=== PATIENT | male | born 1960 | race Caucasian/White ===

== ENCOUNTER 2020-06-08 13:47 | Outpatient (REF) | payer OTHER, SELFPAY ==
--- NOTE | 2020-06-08 13:57 | XR_ITS ---
EXAMINATION: RIGHT WRIST X-RAY CLINICAL INFORMATION: Pain COMPARISON: None TECHNIQUE: 4 views of the right wrist FINDINGS: Bone alignment is normal. No fracture or dislocation is seen. There is mild arthritis at the first SKILLED NURSING joint with small osteophytes. Joint spaces are otherwise normal. Soft tissues are normal. IMPRESSION: Mild arthritis at the first SKILLED NURSING joint.
== END 2020-06-08 13:48 | disposition home or self-care (01) ==
LOC: HO.XRAY 13:47
PROVIDERS: PCP Internal Medicine Medical Oncology; Visit Provider Internal Medicine Medical Oncology
DX: M25.531 Pain in right wrist (principal)
CPT/HCPCS: 73110

== ENCOUNTER 2020-08-16 11:08 | Outpatient (REF) | payer OTHER, SELFPAY ==
[2020-08-16 13:56] LABS: MANUAL DIFF FLAG NO
[2020-08-16 14:02] LABS: Basophils Absolute Auto 0.1 X10*3/uL (0.0-0.2); Basophils Percent Auto 0.8 % (0-2); Eosinophils Absolute Auto 0.2 X10*3/uL (0.0-0.4); Eosinophils Percent Auto 2.7 % (0-4); Hemoglobin 15.6 g/dl (14.0-18.0); Imm Gran Abs Auto 0.01 X10*3/uL (0.00-0.03); Imm Gran Pct Auto 0.2 % (0.0-0.4); Lymphocytes Absolute Auto 1.9 X10*3/uL (1.2-4.9); Lymphocytes Percent Auto 32.3 % (20-40); Mean Corpuscular HGB Conc 31.8 g/dl (31.0-36.0); Mean Corpuscular Hemoglobin 28.8 pg (27.0-33.0); Mean Corpuscular Volume 90.4 fL (80-98); Mean Platelet Volume 9.1 fL (9.4-12.4); Monocytes Absolute Auto 0.4 X10*3/uL (0.1-1.2); Monocytes Percent Auto 6.7 % (2-11); Neutrophils Absolute Auto 3.4 X10*3/uL (2.0-8.3); Neutrophils Percent Auto 57.3 % (45-73); Platelet Count 297 X10*3/uL (160-400); Red Blood Count 5.42 X10*6/uL (4.60-5.80); Red Cell Distribution Width 12.9 % (11.0-16.0)
[2020-08-16 14:42] LABS: Alanine Aminotransferase 22 U/L (0-40); Albumin Level 4.6 g/dL (3.5-5.0); Alkaline Phosphatase 71 U/L (39-117); Anion Gap 14 (12-20); Aspartate Amino Transferase 19 U/L (5-37); Bilirubin Total 0.5 mg/dL (0.0-1.0); Blood Urea Nitrogen 14 mg/dL (9-16); Calcium 8.8 mg/dL (8.4-10.2); Carbon Dioxide 25 mmol/L (22-29); Chloride 106 mmol/L (96-108); Cholesterol 162 mg/dL; Estimated Glomerular Filt Rate > 60; Glucose Fasting 93 mg/dL (60-99); HDL Cholesterol 45 mg/dL; LDL Cholesterol Calculated 88 mg/dl; Potassium 4.5 mmol/l (3.3-5.1); Sodium 140 mmol/L (135-145); Total Protein 7.1 g/dL (6.5-8.0); Triglycerides 146 mg/dL
== END 2020-08-16 11:09 | disposition home or self-care (01) ==
LOC: HO.HMGCLDS 11:08
PROVIDERS: PCP Internal Medicine Medical Oncology; Visit Provider Internal Medicine Medical Oncology
DX: E78.2 Mixed hyperlipidemia (principal); E66.9 Obesity, unspecified
CPT/HCPCS: 36415; 80053; 80061; 85025

== ENCOUNTER → 2020-11-03 10:43 | Outpatient (BNVA) | payer OTHER, SELFPAY | PROVIDERS: PCP Internal Medicine Medical Oncology; Visit Provider Urology ==

== ENCOUNTER 2021-01-20 08:52 | Outpatient (REF) | payer OTHER, SELFPAY ==
[2021-01-20 11:45] LABS: MANUAL DIFF FLAG NO
[2021-01-20 12:10] LABS: Basophils Absolute Auto 0.1 X10*3/uL (0.0-0.2); Basophils Percent Auto 1.2 % (0-2); Eosinophils Absolute Auto 0.2 X10*3/uL (0.0-0.4); Eosinophils Percent Auto 4.2 % (0-4); Hematocrit 42.7 % (42-52); Imm Gran Abs Auto 0.01 X10*3/uL (0.00-0.03); Imm Gran Pct Auto 0.2 % (0.0-0.4); Lymphocytes Absolute Auto 1.7 X10*3/uL (1.2-4.9); Lymphocytes Percent Auto 29.6 % (20-40); Mean Corpuscular HGB Conc 32.8 g/dl (31.0-36.0); Mean Corpuscular Hemoglobin 29.2 pg (27.0-33.0); Mean Platelet Volume 9.1 fL (9.4-12.4); Monocytes Absolute Auto 0.4 X10*3/uL (0.1-1.2); Monocytes Percent Auto 6.3 % (2-11); Neutrophils Absolute Auto 3.3 X10*3/uL (2.0-8.3); Neutrophils Percent Auto 58.5 % (45-73); Platelet Count 358 X10*3/uL (160-400); Red Cell Distribution Width 12.7 % (11.0-16.0); White Blood Count 5.7 X10*3/uL (4.8-10.8)
[2021-01-20 12:37] LABS: Prostate Specific Antigen 0.48 ng/mL (<0.05-4.0); Vitamin D 25-OH Total 32.1 ng/mL (>30)
[2021-01-20 12:44] LABS: Alanine Aminotransferase 23 U/L (0-40); Albumin Level 4.3 g/dL (3.5-5.0); Alkaline Phosphatase 77 U/L (39-117); Anion Gap 14 (12-20); Aspartate Amino Transferase 19 U/L (5-37); Bilirubin Total 0.4 mg/dL (0.0-1.0); Blood Urea Nitrogen 14 mg/dL (9-16); Calcium 9.1 mg/dL (8.4-10.2); Carbon Dioxide 24 mmol/L (22-29); Chloride 108 mmol/L (96-108); Cholesterol 142 mg/dL; Estimated Glomerular Filt Rate > 60; Glucose Fasting 110 mg/dL (60-99); HDL Cholesterol 41 mg/dL; LDL Cholesterol Calculated 80 mg/dl; Potassium 5.1 mmol/L (3.3-5.1); Sodium 141 mmol/L (135-145); Total Protein 6.8 g/dL (6.5-8.0); Triglycerides 106 mg/dL
== END 2021-01-20 08:53 | disposition home or self-care (01) ==
LOC: HO.HMGCLDS 08:52
PROVIDERS: PCP Internal Medicine Medical Oncology; Visit Provider Internal Medicine Medical Oncology
DX: Z12.5 Encounter for screening for malignant neoplasm of prostate (principal); E78.2 Mixed hyperlipidemia; E66.9 Obesity, unspecified; N40.1 Benign prostatic hyperplasia with lower urinary tract symptoms
CPT/HCPCS: 36415; 80053; 80061; 82306; 84153; 85025

== ENCOUNTER 2021-04-18 09:28 | Outpatient (REF) | payer MEDICAID, SELFPAY ==
[2021-04-18 11:05] LABS: MANUAL DIFF FLAG NO
[2021-04-18 11:15] LABS: Basophils Absolute Auto 0.1 X10*3/uL (0.0-0.2); Basophils Percent Auto 1.1 % (0-2); Eosinophils Absolute Auto 0.2 X10*3/uL (0.0-0.4); Eosinophils Percent Auto 2.3 % (0-4); Hematocrit 45.2 % (42-52); Hemoglobin 15.1 g/dl (14.0-18.0); Imm Gran Abs Auto 0.02 X10*3/uL (0.00-0.03); Imm Gran Pct Auto 0.3 % (0.0-0.4); Lymphocytes Absolute Auto 1.9 X10*3/uL (1.2-4.9); Mean Corpuscular HGB Conc 33.4 g/dl (31.0-36.0); Mean Corpuscular Hemoglobin 29.2 pg (27.0-33.0); Mean Corpuscular Volume 87.3 fL (80-98); Mean Platelet Volume 8.8 fL (9.4-12.4); Monocytes Absolute Auto 0.5 X10*3/uL (0.1-1.2); Monocytes Percent Auto 7.5 % (2-11); Neutrophils Absolute Auto 3.8 X10*3/uL (2.0-8.3); Neutrophils Percent Auto 59.8 % (45-73); Platelet Count 305 X10*3/uL (160-400); Red Blood Count 5.18 X10*6/uL (4.60-5.80); Red Cell Distribution Width 13.2 % (11.0-16.0); White Blood Count 6.4 X10*3/uL (4.8-10.8)
[2021-04-18 11:39] LABS: Alanine Aminotransferase 26 U/L (0-40); Albumin Level 4.6 g/dL (3.5-5.0); Alkaline Phosphatase 71 U/L (39-117); Anion Gap 15 (12-20); Aspartate Amino Transferase 22 U/L (5-37); Bilirubin Total 0.6 mg/dL (0.0-1.0); Blood Urea Nitrogen 16 mg/dL (9-16); Calcium 9.4 mg/dL (8.4-10.2); Carbon Dioxide 23 mmol/L (22-29); Chloride 105 mmol/L (96-108); Estimated Glomerular Filt Rate > 60; Glucose Random 102 mg/dL (60-115); Potassium 4.7 mmol/L (3.3-5.1); Sodium 138 mmol/L (135-145); Total Protein 7.1 g/dL (6.5-8.0)
[2021-04-18 11:58] LABS: Erythrocyte Sedimentation Rate 3 MM/HR (0-15)
== END 2021-04-18 09:29 | disposition home or self-care (01) ==
LOC: HO.HMGCLDS 09:28
PROVIDERS: PCP Internal Medicine Medical Oncology; Visit Provider Internal Medicine Medical Oncology
DX: C76.0 Malignant neoplasm of head, face and neck (principal); R59.0 Localized enlarged lymph nodes
CPT/HCPCS: 36415; 80053; 85025; 85652

== ENCOUNTER 2021-04-21 09:21 | Outpatient (REF) | payer MEDICAID, SELFPAY ==
--- NOTE | ~2021-04-21 | CT_ITS ---
EXAMINATION: CT HEAD WITH IV CONTRAST CT NECK WITH IV CONTRAST INDICATION: Head and neck cancer with enlarged lymph nodes. COMPARISON: None available. TECHNIQUE: Multidetector CT acquisitions of the head was obtained without IV contrast. This CT examination was performed using dose optimization techniques as appropriate, variously including the following: *Automated exposure control *Adjustment of mA and/or kV according to patient size (this includes techniques or standardized protocols for targeted exams where dose is matched to indication/reason for exam; i.e. extremities or head) *Use of iterative reconstruction technique FINDINGS: HEAD CT: There is no pathologic enhancement intracranially. There is no intracranial hemorrhage, hydrocephalus, extra-axial surface collection, midline shift, or other herniation pattern. Ryder to white matter differentiation is diffusely maintained without evidence of an evolved acute territorial infarct. The basilar cisterns are preserved. No significant soft tissue abnormality. No acute osseous abnormality. The paranasal sinuses and the mastoid air cells are well aerated. NECK CT: There is an enlarged left level 1B lymph node located directly anterior to the left submandibular gland measuring up to 2.3 cm in size. A metastatic lymph node is not excluded. The superficial mucosal spaces are very limitedly assessed secondary to significant dental streak artifact despite angled series. Given the above lymph node, a PET/CT would be helpful in excluding any superficial mucosal lesion that may be obscured on this exam. There is lobulated soft tissue within the vallecula bilaterally that can be correlated with direct visual inspection. Asymmetric vascularity superficial and within the left masseter muscle. A rpmu-lx-[id number] MRA and gadolinium infusion MRA of the neck inclusive of this area would be helpful in excluding an underlying high flow vascular malformation. The thyroid gland, the submandibular glands, and the right parotid gland are unremarkable. There is fatty replacement of the left parotid gland. There is centrilobular emphysema within the imaged lungs. Upper mediastinum demonstrates small lymph nodes that is otherwise unremarkable. No suspicious intraosseous lesions. Multilevel cervical spondylosis. CT/CT head/brain w con IMPRESSION: - There is an enlarged left level 1B lymph node located directly anterior to the left submandibular gland measuring up to 2.3 cm in size. A metastatic lymph node is not excluded. The superficial mucosal spaces are very limitedly assessed secondary to significant dental streak artifact despite angled series. Given the above lymph node, a PET/CT would be helpful in excluding any superficial mucosal lesion that may be obscured on this exam. - Asymmetric vascularity superficial and within the left masseter muscle. A nhro-ps-flrwhz MRA and gadolinium infusion MRA of the neck inclusive of this area would be helpful in excluding an underlying high flow vascular malformation. - There is lobulated soft tissue within the vallecula bilaterally that can be correlated with direct visual inspection. - There is fatty replacement of the left parotid gland. - No acute intracranial findings. No enhancing lesions intracranially.
--- NOTE | ~2021-04-21 | CT_ITS ---
EXAMINATION: CT HEAD WITH IV CONTRAST CT NECK WITH IV CONTRAST INDICATION: Head and neck cancer with enlarged lymph nodes. COMPARISON: None available. TECHNIQUE: Multidetector CT acquisitions of the head was obtained without IV contrast. This CT examination was performed using dose optimization techniques as appropriate, variously including the following: *Automated exposure control *Adjustment of mA and/or kV according to patient size (this includes techniques or standardized protocols for targeted exams where dose is matched to indication/reason for exam; i.e. extremities or head) *Use of iterative reconstruction technique FINDINGS: HEAD CT: There is no pathologic enhancement intracranially. There is no intracranial hemorrhage, hydrocephalus, extra-axial surface collection, midline shift, or other herniation pattern. Ryder to white matter differentiation is diffusely maintained without evidence of an evolved acute territorial infarct. The basilar cisterns are preserved. No significant soft tissue abnormality. No acute osseous abnormality. The paranasal sinuses and the mastoid air cells are well aerated. NECK CT: There is an enlarged left level 1B lymph node located directly anterior to the left submandibular gland measuring up to 2.3 cm in size. A metastatic lymph node is not excluded. The superficial mucosal spaces are very limitedly assessed secondary to significant dental streak artifact despite angled series. Given the above lymph node, a PET/CT would be helpful in excluding any superficial mucosal lesion that may be obscured on this exam. There is lobulated soft tissue within the vallecula bilaterally that can be correlated with direct visual inspection. Asymmetric vascularity superficial and within the left masseter muscle. A xuzw-ck-qakdxs MRA and gadolinium infusion MRA of the neck inclusive of this area would be helpful in excluding an underlying high flow vascular malformation. The thyroid gland, the submandibular glands, and the right parotid gland are unremarkable. There is fatty replacement of the left parotid gland. There is centrilobular emphysema within the imaged lungs. Upper mediastinum demonstrates small lymph nodes that is otherwise unremarkable. No suspicious intraosseous lesions. Multilevel cervical spondylosis. CT/CT soft tissue neck w con IMPRESSION: - There is an enlarged left level 1B lymph node located directly anterior to the left submandibular gland measuring up to 2.3 cm in size. A metastatic lymph node is not excluded. The superficial mucosal spaces are very limitedly assessed secondary to significant dental streak artifact despite angled series. Given the above lymph node, a PET/CT would be helpful in excluding any superficial mucosal lesion that may be obscured on this exam. - Asymmetric vascularity superficial and within the left masseter muscle. A nzoe-mf-rpocdg MRA and gadolinium infusion MRA of the neck inclusive of this area would be helpful in excluding an underlying high flow vascular malformation. - There is lobulated soft tissue within the vallecula bilaterally that can be correlated with direct visual inspection. - There is fatty replacement of the left parotid gland. - No acute intracranial findings. No enhancing lesions intracranially.
[2021-04-21] MEDS: iohexoL 350 MG/ML 100 ML INFUS..BTL 60 ML IV (10:31)
== END 2021-04-21 09:22 | disposition home or self-care (01) ==
LOC: HO.CT 09:21
PROVIDERS: PCP Internal Medicine Medical Oncology; Visit Provider Internal Medicine Medical Oncology
DX: C76.0 Malignant neoplasm of head, face and neck (principal); R59.0 Localized enlarged lymph nodes
CPT/HCPCS: 70460; 70491; Q9967

== ENCOUNTER 2021-05-20 08:38 | Outpatient (REF) | payer MEDICAID, SELFPAY ==
--- NOTE | ~2021-05-20 | US_ITS ---
EXAMINATION: ULTRASOUND-GUIDED FINE-NEEDLE ASPIRATION CLINICAL INFORMATION: Enlarged left submandibular lymph node. History of head and neck cancer. COMPARISON: Previous CT of the neck 04/21/2021 TECHNIQUE: Procedure and risks and benefits including bleeding and infection were discussed with the patient and informed consent was obtained. The left submandibular region was prepped and draped in the usual sterile fashion. The skin and soft tissues were anesthetized with 1% lidocaine plain. Using ultrasound guidance and a 22-gauge needle, 3 separate fine-needle aspirates were performed. FINDINGS: There is an enlarged left submandibular lymph node that was targeted for fine-needle aspiration. This measures 2.2 x 1.7 x 2.2 cm in dimension. Demonstrates abnormal ultrasound morphology with slit-like hilum and diffuse cortical flow. US/US guided fine needle asp IMPRESSION: Ultrasound-guided fine-needle aspiration of left submandibular lymph node.
[2021-05-20] MEDS: Lidocaine HCl 1 % MPF 5 ML VIAL SUBCUT (10:08)
== END 2021-05-20 08:39 | disposition home or self-care (01) ==
LOC: HO.US 08:38
PROVIDERS: Radiology Diagnostic Radiology; Visit Provider Internal Medicine Medical Oncology
DX: C77.0 Secondary and unspecified malignant neoplasm of lymph nodes of head, face and neck (principal); C76.0 Malignant neoplasm of head, face and neck
CPT/HCPCS: 10005; 36415; 88172; 88173; 88184; 88185; 88300; 88305; 88341; 88342

== ENCOUNTER 2021-12-12 09:37 | Outpatient (REF) | payer MEDICAID, SELFPAY ==
[2021-12-12 11:38] LABS: MANUAL DIFF FLAG NO
[2021-12-12 12:06] LABS: Basophils Absolute Auto 0.1 X10*3/uL (0.0-0.2); Eosinophils Absolute Auto 0.1 X10*3/uL (0.0-0.4); Eosinophils Percent Auto 1.6 % (0-4); Hematocrit 44.1 % (42.0-52.0); Hemoglobin 14.2 g/dl (14.0-18.0); Imm Gran Abs Auto 0.02 X10*3/uL (0.00-0.03); Imm Gran Pct Auto 0.3 % (0.0-0.4); Lymphocytes Absolute Auto 0.5 X10*3/uL (1.2-4.9); Lymphocytes Percent Auto 7.4 % (20-40); Mean Corpuscular HGB Conc 32.2 g/dl (31.0-36.0); Mean Corpuscular Hemoglobin 29.2 pg (27.0-33.0); Mean Corpuscular Volume 90.7 fL (80.0-98.0); Monocytes Absolute Auto 0.4 X10*3/uL (0.1-1.2); Neutrophils Absolute Auto 5.8 x10*3/uL (2.0-8.3); Neutrophils Percent Auto 83.7 % (45-73); Platelet Count 315 X10*3/uL (160-400); Red Blood Count 4.86 X10*6/uL (4.60-5.80); Red Cell Distribution Width 14.7 % (11.0-16.0); White Blood Count 6.9 X10*3/uL (4.8-10.8)
[2021-12-12 12:32] LABS: Alanine Aminotransferase 16 U/L (0-40); Albumin Level 4.3 g/dL (3.5-5.0); Alkaline Phosphatase 70 U/L (39-117); Anion Gap 12 (12-20); Aspartate Amino Transferase 18 U/L (5-37); Blood Urea Nitrogen 9 mg/dL (9-16); Calcium 9.2 mg/dL (8.4-10.2); Carbon Dioxide 24 mmol/L (22-29); Chloride 106 mmol/L (96-108); Cholesterol 166 mg/dL; Estimated Glomerular Filt Rate > 60; Glucose Fasting 121 mg/dL (60-99); HDL Cholesterol 45 mg/dL; LDL Cholesterol Calculated 100 mg/dl; Potassium 4.8 mmol/L (3.3-5.1); Sodium 137 mmol/L (135-145); Total Protein 6.8 g/dL (6.5-8.0); Triglycerides 106 mg/dL
[2021-12-12 12:33] LABS: Prostate Specific Antigen 0.27 ng/mL (<0.05-4.0)
== END 2021-12-12 09:38 | disposition home or self-care (01) ==
LOC: HO.HMGCLDS 09:37
PROVIDERS: Visit Provider Internal Medicine Medical Oncology
DX: Z00.00 Encounter for general adult medical examination without abnormal findings (principal); Z12.5 Encounter for screening for malignant neoplasm of prostate; E66.9 Obesity, unspecified; E78.2 Mixed hyperlipidemia; N40.1 Benign prostatic hyperplasia with lower urinary tract symptoms
CPT/HCPCS: 36415; 80053; 80061; 84153; 85025

== ENCOUNTER 2022-01-31 09:17 | Outpatient (REF) | payer MEDICAID, SELFPAY ==
[2022-01-31 11:45] LABS: MANUAL DIFF FLAG NO
[2022-01-31 11:56] LABS: Basophils Percent Auto 0.9 % (0-2); Eosinophils Absolute Auto 0.1 X10*3/uL (0.0-0.4); Eosinophils Percent Auto 2.2 % (0-4); Hemoglobin 13.6 g/dl (14.0-18.0); Imm Gran Abs Auto 0.01 X10*3/uL (0.00-0.03); Imm Gran Pct Auto 0.2 % (0.0-0.4); Lymphocytes Absolute Auto 0.5 X10*3/uL (1.2-4.9); Lymphocytes Percent Auto 10.7 % (20-40); Mean Corpuscular HGB Conc 32.4 g/dl (31.0-36.0); Mean Corpuscular Hemoglobin 29.8 pg (27.0-33.0); Mean Corpuscular Volume 92.1 fL (80.0-98.0); Mean Platelet Volume 9.2 fL (9.4-12.4); Monocytes Absolute Auto 0.4 X10*3/uL (0.1-1.2); Monocytes Percent Auto 8.5 % (2-11); Neutrophils Absolute Auto 3.5 x10*3/uL (2.0-8.3); Neutrophils Percent Auto 77.5 % (45-73); Platelet Count 280 X10*3/uL (160-400); Red Blood Count 4.56 X10*6/uL (4.60-5.80); Red Cell Distribution Width 13.4 % (11.0-16.0); White Blood Count 4.5 X10*3/uL (4.8-10.8)
[2022-01-31 12:14] LABS: Alanine Aminotransferase 27 U/L (0-40); Alkaline Phosphatase 73 U/L (39-117); Anion Gap 10 (12-20); Aspartate Amino Transferase 26 U/L (5-37); Bilirubin Total 0.3 mg/dL (0.0-1.0); Blood Urea Nitrogen 15 mg/dL (9-16); Calcium 8.8 mg/dL (8.4-10.2); Carbon Dioxide 25 mmol/L (22-29); Chloride 108 mmol/L (96-108); Estimated Glomerular Filt Rate > 60; Glucose Fasting 107 mg/dL (60-99); Potassium 4.8 mmol/L (3.3-5.1); Sodium 138 mmol/L (135-145); Total Protein 6.3 g/dL (6.5-8.0)
== END 2022-01-31 09:18 | disposition home or self-care (01) ==
LOC: HO.HMGCLDS 09:17
PROVIDERS: Visit Provider Internal Medicine Medical Oncology
DX: C76.0 Malignant neoplasm of head, face and neck (principal); E66.9 Obesity, unspecified; E78.2 Mixed hyperlipidemia
CPT/HCPCS: 36415; 80053; 85025

== ENCOUNTER 2022-02-06 08:22 | Outpatient (REF) | payer MEDICAID, SELFPAY ==
--- NOTE | ~2022-02-06 | CT_ITS ---
EXAMINATION: CT SOFT TISSUE NECK WITH CONTRAST CLINICAL INFORMATION: History of malignant neoplasm of head/face/neck. Metastatic squamous cell carcinoma. COMPARISON: 04/21/2021 CT. TECHNIQUE: Following the intravenous administration of 60 mL of Omnipaque 350 intravenous contrast, helical imaging was performed in the axial plane with generation of coronal and sagittal reformatted images. This CT examination was performed using dose optimization techniques as appropriate, variously including the following: *Automated exposure control *Adjustment of mA and/or kV according to patient size (this includes techniques or standardized protocols for targeted exams where dose is matched to indication/reason for exam; i.e. extremities or head) *Use of iterative reconstruction technique DLP: 348 mGy-cm FINDINGS: Skull Base: The bony skull base and visualized calvarium are intact. Mastoids and middle ear cavities are unopacified. Nasal septal deviation to the right is noted with a small retention cyst and some mucosal thickening in the left maxillary sinus on current study. The visualized intracranial structures demonstrate no acute process within the limitations of the study. There is opacification of the visualized major dural venous sinuses and jugular bulbs. Suprahyoid Neck: The nasopharynx, retropharynx and parapharyngeal spaces appear symmetric and within normal limits. The right parotid gland is normal in morphology and enhances normally. The left parotid gland is absent. Correlate with surgical history. Masseter muscles appear symmetric and normal in attenuation with a normal appearance to the medial and lateral pterygoid muscles. Prominent vascularity is again noted along the lateral margin of the left masseter muscle, which raises the question of a possible arteriovenous malformation. There is streak and beam-hardening artifact related to metallic dentition in the oral cavity resulting in obscuration of portions of the oral tongue, lingual and buccal spaces and mandible. A subtle zone of hypodensity on the left side of the oral tongue is unchanged from the previous study and may be related to beam-hardening. Otherwise, no definite focal tongue lesion seen. The base of the tongue and floor of the mouth structures appear symmetric and intact. The right submandibular gland is normal in morphology and enhances normally. The left submandibular gland has been excised along with excision of a previously noted enlarged level 1B lymph node on the left at this level, now with streaky opacities and clips in this region with thickening of the platysma muscle. These findings are consistent with postoperative and posttreatment changes. Streaky changes in the subcutaneous fat on both sides of the neck with some thickening of the right platysma muscle also noted, likely posttreatment changes. No recurrent lymphadenopathy identified. Some lobulated soft tissue in the region of the vallecula asymmetric to the left appears similar to the previous study. Correlate with direct visualization. Prominent vascularity along the floor of the mouth on the left is noted on the current study which is nonspecific. A metallic clip is seen directly adjacent to this. Infrahyoid Neck: There is prevertebral soft tissue thickening with hypodensity in the retropharyngeal space. Uncertain whether this represents edema or fluid in the retropharynx extending from the level of the dens caudally down to the true vocal cords. Recommend clinical correlation and correlation with previous treatment port and/or PET/CT. True vocal cords and false cords are not ideally evaluated but no definite laryngeal lesion is seen. Thyroid gland appears normal. Atheromatous vascular calcification of the carotid bulbs is noted bilaterally similar to previous exam. No definite infrahyoid lymphadenopathy. Normal appearance to the tracheoesophageal grooves. Upper Chest: The visualized lung parenchyma demonstrates scattered emphysematous changes bilaterally similar to the previous exam. Mild fibrotic changes at the right lung apex are suspected. The visualized mediastinum demonstrates scattered multiple nonenlarged subcarinal, right hilar, precarinal, ductus region and right paratracheal lymph nodes similar to the previous exam. Skeletal: Lordotic reversal centered at C3-C4 with multilevel cervical DDD and spondylosis stable in appearance without focally aggressive osseous lesion. Other Comments: None CT/CT soft tissue neck w con IMPRESSION: 1. Postoperative and posttreatment changes on the left, as described above with no definite evidence for recurrent lymphadenopathy. Continue followup recommended at a clinically appropriate interval. 2. Mild hypodensity tracking along the retropharynx from the level of the dens down to the level of the true vocal cords of indeterminate etiology and clinical significance. This has developed since the previous exam. Uncertain whether these are posttreatment changes or infectious disease. Correlate with the previous treatment port and clinical exam. 3. Small air-filled external laryngocele noted on the left similar to previous exam with some lobulated soft tissue near the vallecula on the left similar to previous exam. Correlate with direct visualization. 4. Atheromatous calcifications of the carotid bulbs similar to previous exam. Prominent vascularity along the lateral margin of the masseter muscle and along the floor of the mouth on the left. This appears more prominent than the previous study. Cannot exclude an arteriovenous malformation. 5. Pulmonary findings as discussed above similar to the previous exam. The [facility] staff will call to confirm receipt of this report with acknowledgement of the findings and any recommendations.
[2022-02-06] MEDS: iohexoL 350 MG/ML 75 ML INFUS..BTL 60 ML IV (09:53)
== END 2022-02-06 08:23 | disposition home or self-care (01) ==
LOC: HO.CT 08:22
PROVIDERS: PCP Internal Medicine Medical Oncology; Visit Provider Internal Medicine Medical Oncology
DX: C76.0 Malignant neoplasm of head, face and neck (principal)
CPT/HCPCS: 70491; Q9967

== ENCOUNTER → 2022-04-14 08:24 | Outpatient (BNVA) | payer MEDICAID, SELFPAY | PROVIDERS: PCP Internal Medicine Medical Oncology; Visit Provider Urology | DX: N32.3 Diverticulum of bladder (principal); N32.0 Bladder-neck obstruction | CPT/HCPCS: 51798; 99212 ==

== ENCOUNTER 2022-06-26 06:48 | Day surgery (SDC) | payer OTHER, SELFPAY ==
[2022-06-20 11:42] VITALS: BMI 25.8
--- NOTE | 2022-06-23 09:26 | HO.ANESPROP2 ---
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 History of radiation therapy History of radiation therapy Incomplete emptying of bladder Salivary gland carcinoma Weak urinary stream Family History Family History Father Myocardial infarct Diabetes mellitus HTN (hypertension) Mother Asthma Acute Crohn's disease Arthritis Surgical History Surgical History H/O umbilical hernia repair History of appendectomy History of bowel resection History of hernia repair Hx of tonsillectomy Social History Social History Patient Tobacco Use Status: Former Tobacco user Tobacco use type: Cigarette Smoked in Last 30 Days: No Use of substances other than those prescribed or required for medical reasons: Yes Are you DNR?: No Advance Directives: No Advance Directives Information Provided: Yes Meds Allergies Allergy/AdvReac Type Severity Reaction Status Date / Time levofloxacin [Levaquin] Allergy Severe Itching Verified 06/26/22 07:00 bee sting Allergy Severe Swelling Uncoded 06/26/22 07:00 Ceftin Allergy Severe Itching Uncoded 06/26/22 07:00 Home Medications Medication Instructions Recorded Confirmed Last Taken Type simvastatin 20 mg tablet 20 mg PO BEDTIME 11/03/20 06/26/22 Unknown History paroxetine HCl 10 mg tablet 10 mg PO QAM 06/19/22 06/26/22 06/26/22 History terazosin 10 mg capsule 20 mg PO BEDTIME 06/26/22 06/26/22 Unknown History Exam Exam Date and Time: June 23, 2022 0926 Height,Weight and Vital Signs: Height 5 ft 8 in Weight 77.111 kg Pertinent Lab Results Pertinent Lab Results: Laboratory Tests 01/31/22 01/31/22 09:23 09:23 WBC 4.5 L Hgb 13.6 L Hct 42.0 Plt Count 280 Sodium 138 Potassium 4.8 Chloride 108 Carbon Dioxide 25 BUN 15 D Creatinine 0.89 Assessment and Plan Assessment Anesthesia Assessment: Chart Reviewed Documented by User: Yanni Salvador MD 06/26/22 08:21 [facility] Active Problems Active Problems: All Active Problems (Updated 11/03/20 @ 11:23 by Ady Patton MD) Bladder diverticulum (Acute) Bladder outlet obstruction (Acute) BPH (benign prostatic hyperplasia) (Acute) Anxiety/Depression Hyperlipidemia Past Medical History Medical History Basal cell carcinoma Bladder diverticulum Bladder outlet obstruction BPH (benign prostatic hyperplasia) Diverticulitis Dry mouth Emphysema of right lung 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 History of radiation therapy History of radiation therapy Incomplete emptying of bladder Salivary gland carcinoma Weak urinary stream Family History Family History Father Myocardial infarct Diabetes mellitus HTN (hypertension) Mother Asthma Acute Crohn's disease Arthritis Family history of problems with anesthesia: No Surgical History Surgical History H/O umbilical hernia repair History of appendectomy History of bowel resection History of hernia repair Hx of tonsillectomy History of Problems with Anesthesia: No Social History Social History Patient Tobacco Use Status: Former Tobacco user Tobacco use type: Cigarette Smoked in Last 30 Days: No Use of substances other than those prescribed or required for medical reasons: Yes Are you DNR?: No Advance Directives: No Advance Directives Information Provided: Yes Meds Allergies Allergy/AdvReac Type Severity Reaction Status Date / Time levofloxacin [Levaquin] Allergy Severe Itching Verified 06/26/22 07:00 bee sting Allergy Severe Swelling Uncoded 06/26/22 07:00 Ceftin Allergy Severe Itching Uncoded 06/26/22 07:00 Home Medications Medication Instructions Recorded Confirmed Last Taken Type simvastatin 20 mg tablet 20 mg PO BEDTIME 11/03/20 06/26/22 Unknown History paroxetine HCl 10 mg tablet 10 mg PO QAM 06/19/22 06/26/22 06/26/22 History terazosin 10 mg capsule 20 mg PO BEDTIME 06/26/22 06/26/22 Unknown History Exam Height,Weight and Vital Signs: Height 5 ft 8 in Weight 77.111 kg Vital Signs Temp Pulse Resp BP Pulse Ox O2 Del Method 06/26/22 07:29 97.2 F 69 16 133/73 98 Room Air Airway Mallampati Class: IV TM Dist: >3cm Neck ROM: Limited (S/p head and neck radiation) Heart: RRR Lungs: CTAB Assessment and Plan Assessment Anesthesia Assessment: Anesthesia Plan Discussed Final Anesthetic Review Family History of Problems with Anesthesia: No History of Problems with Anesthesia: No NPO: Yes ASA Class: III Final Preanesthetic Review: No Changes in Pt Med Stat, Meds/Allgs Chart Reviewed, Consent Obtained/Reviewed and Anes Risks/Benef Reviewed Patient Risk: Intermediate Procedure Risk: Low Assessment/Block/Sedation in SS: Assess/Block/Sedation-SS Anesthetic Plan Anesthetic Plan: GA Disposition: Standard PACU
[2022-06-26] VITALS (7 sets, daily range): BP systolic 112–140; BP diastolic 73–85; PULSE 69–92; RESP 16–20; TEMP 36.2–36.6; O2SAT 97–99; BMI 27.5
[2022-06-26] MEDS: Lactated Ringers 1,000 ML 100 ML IVCONT (07:48)
--- NOTE | 2022-06-26 08:17 | PC.NURSE ---
patient stated he hit his neck with a part of a log about two weeks ago. c/o left neck pain. no loc or denies falling off a ladder. didnt hit head. wasnt seen by . anesthesia aware .
--- NOTE | 2022-06-26 08:38 | MHC.SHP ---
Pre-Procedural Eval Section A Date of Service: 06/26/22 The patient is an INPATIENT: No Changes since office visit: No Cold of Flu in the past 2 weeks, No New Medical Problems, No Changes in Medication and No Patient answered all questions The History & Physical has been completed within 30 days and I have reviewed it.: Yes Section B Chief Complaint: Benign prostatic hyperplasia without lower urinary Details of Present Illness: Laser prostatectomy with laser ablation of diverticulum Relevant Family History (Specify if Yes): No Relevant Social History: None Present Medications: see Short Stay Collaborative assessment Medical History: No relevant PMH History of Previous Operations: No relevant previous surgery Allergies: Allergies Allergy/AdvReac Type Severity Reaction Status Date / Time levofloxacin [Levaquin] Allergy Severe Itching Verified 06/26/22 07:00 bee sting Allergy Severe Swelling Uncoded 06/26/22 07:00 Ceftin Allergy Severe Itching Uncoded 06/26/22 07:00 Review of Systems Sugical H&P ROS: Negative: Constitution, Cardiovascular, Respiratory, Neurological, Psychiatric, Hem-Onc, Allergic/Immunologic, Gastrointestinal, Genitourinary, Musculoskeletal, Integumentary, Endocrine and Eyes/Ears/Nose/Throat Exam Surgical H&P Exam: Normal: HEENT, Normal: Heart, Normal: Lungs, Normal: Extremities, Normal: Abdomen, Normal: Skin and Normal: Neurological Plan Diagnosis/Plan: Unchanged (BPH with bladder diverticulum) I have reviewed the history and physical and performed a pertinent physical examination on my patient. No changes have occurred unless specified.
--- NOTE | 2022-06-26 08:50 | MHC.SHP ---
Pre-Procedural Eval Section A Date of Service: 06/26/22 The patient is an INPATIENT: No Changes since office visit: No Cold of Flu in the past 2 weeks, No New Medical Problems, No Changes in Medication and No Patient answered all questions The History & Physical has been completed within 30 days and I have reviewed it.: Yes Section B Chief Complaint: Benign prostatic hyperplasia without lower urinary Allergies: Allergies Allergy/AdvReac Type Severity Reaction Status Date / Time levofloxacin [Levaquin] Allergy Severe Itching Verified 06/26/22 07:00 bee sting Allergy Severe Swelling Uncoded 06/26/22 07:00 Ceftin Allergy Severe Itching Uncoded 06/26/22 07:00 Plan I have reviewed the history and physical and performed a pertinent physical examination on my patient. No changes have occurred unless specified.
--- NOTE | 2022-06-26 09:57 | W.PM.OPN ---
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 Treated with alpha-nathalie and other medications. Still with symptoms. On cystoscopy in office has tight bladder neck - with right posterior wall bladder diverticulum and tight neck. Recommendation for prostate procedure with laser enucleation of prostate. It has been discussed. Focus was placed on development of retrograde examination which is a normal part of this procedure. Procedure: After informed consent was verified the patient was brought to the operating room and placed in a supine position. Anesthesia was administered per protocol. Patient was placed in modified dorsal lithotomy position and prepped and draped in a sterile fashion. Safety pause time-out was confirmed. Antibiotics have been given. Twenty-four Vincentian laser cystoscope was inserted per urethra. No abnormalities found the anterior posterior urethra. The bladder was filled on both ureteric orifices were seen in normal position away from our area of interest. The bladder diverticulum was seen in the right posterior wall with a tight bladder neck. Using the GreenLight laser with settings of 60 w incisions were made at the 03:00 o'clock and 09:00 o'clock and 12:00 o'clock positions. These were taken deep enough that bladder fat was noted. After the 3 incisions had been made the diverticulum itself was fulgurated using the coagulation settings of the GreenLight laser. This is done in order to promote scarring and retraction of the diverticulum. Using a GreenLight laser settings of 80 w incisions were made at the 5 and 7 o'clock position. They were taken down and then laterally on each side. They were brought from the bladder neck down to the level of the veru. These defined the lateral aspects of the median lobe area. The median lobe was ablated and enucleated tissue removed. Once the median lobe area had been cleaned attention was directed to the lateral lobes. We started with the patient's left lateral lobe. Firstly the 05:00 o'clock groove was further developed. This was moved in the lateral position to undermine the tissue on the lateral side. Focus was then placed on the laser at the 1 o'clock position in developing a secondary groove down to the level of bladder fibers. The intervening tissue between these 2 grooves was removed with a combination of enucleation ablation working from the apex toward the bladder neck. A similar procedure was repeated on the patient's right-hand side. When this was completed debris and pieces of prostate removed from the bladder. Both ureteric orifices were reviewed again in shown to be patent in away from any areas of energy damage. The apical area was reviewed in any stray ooze was controlled. A 22 Vincentian 30 cc balloon Abraham catheter was placed over stylet into the bladder. Clear efflux was obtained. 30 cc was placed in the balloon and gentle traction was placed. A snap was used to hold tension once the patient will be moved and transported. Once transportation its finish this novel be removed. A belladonna and opiate suppository was placed for postprocedure pain management. He tolerated procedure well was extubated in the operating and transferred in a stable condition to the recovery area. Total Power 108 kW 20:30 sec Pathology: Prostate tissue Drains: Abraham catheter
[2022-06-26] MEDS: oxyCODONE HCl Immed Release 5 MG TABLET PO (10:12)
[2022-06-26] MEDS: Acetaminophen 325 MG TABLET 650 MG PO (10:12)
== END 2022-06-26 11:12 | disposition home or self-care (01) ==
PROVIDERS: PCP Internal Medicine Medical Oncology; Visit Provider Urology
PROC: (CPT 52648; principal; 2022-06-26 09:10)
DX: N40.1 Benign prostatic hyperplasia with lower urinary tract symptoms (principal); N32.0 Bladder-neck obstruction; N32.3 Diverticulum of bladder
CPT/HCPCS: 52649; 52305; 88305; J0690; J1100; J2250; J2405; J3010

== ENCOUNTER → 2022-06-29 09:22 | Outpatient (BNVA) | payer OTHER, SELFPAY | PROVIDERS: PCP Internal Medicine Medical Oncology; Visit Provider Urology | DX: N40.0 Benign prostatic hyperplasia without lower urinary tract symptoms (principal) | CPT/HCPCS: 51700; 51798 ==

== ENCOUNTER 2022-07-31 10:52 | Outpatient (REF) | payer OTHER, SELFPAY ==
[2022-07-31 14:28] LABS: Appearance Urine Clear; Color Urine Yellow; Glucose Urine UA Negative (Negative); Leukocyte Esterase Urine Moderate (2+) (Negative); Nitrite Urine Negative (Negative); PH 6.5 (5.0-9.0); UMIC TRIGGER UA YES; Urine Blood Negative (Negative); Urine Ketones Negative (Negative); Urine Protein Negative (Neg-Trace)
[2022-07-31 14:31] LABS: Bacteria Urine None Seen (None Seen); Hyaline Casts Urine 0-2 /LPF (0-2); Squamous Epithelial Cell Urine 0-2 /HPF (0-2); WBC Urine >50 /HPF (0-5)
== END 2022-07-31 10:53 | disposition home or self-care (01) ==
LOC: HO.HMGCLDS 10:52
PROVIDERS: PCP Internal Medicine Medical Oncology; Visit Provider Urology
DX: N32.0 Bladder-neck obstruction (principal); N40.0 Benign prostatic hyperplasia without lower urinary tract symptoms
CPT/HCPCS: 81001; 87086

== ENCOUNTER → 2022-08-11 10:30 | Outpatient (BNVA) | payer OTHER, SELFPAY | PROVIDERS: PCP Internal Medicine Medical Oncology; Visit Provider Urology | DX: N32.3 Diverticulum of bladder (principal); N32.0 Bladder-neck obstruction; N40.0 Benign prostatic hyperplasia without lower urinary tract symptoms | CPT/HCPCS: 51798; 99212 ==

== ENCOUNTER 2022-11-02 08:27 | Outpatient (REF) | payer MEDICAID, SELFPAY ==
[2022-11-02 11:06] LABS: MANUAL DIFF FLAG NO
[2022-11-02 11:21] LABS: Basophils Absolute Auto 0.1 X10*3/uL (0.0-0.2); Eosinophils Absolute Auto 0.1 X10*3/uL (0.0-0.4); Eosinophils Percent Auto 2.4 % (0-4); Hematocrit 44.7 % (42.0-52.0); Hemoglobin 14.6 g/dl (14.0-18.0); Imm Gran Abs Auto 0.02 X10*3/uL (0.00-0.03); Imm Gran Pct Auto 0.3 % (0.0-0.4); Lymphocytes Absolute Auto 0.7 X10*3/uL (1.2-4.9); Lymphocytes Percent Auto 12.2 % (20-40); Mean Corpuscular HGB Conc 32.7 g/dl (31.0-36.0); Mean Corpuscular Hemoglobin 29.5 pg (27.0-33.0); Mean Corpuscular Volume 90.3 fL (80.0-98.0); Mean Platelet Volume 8.9 fL (9.4-12.4); Monocytes Absolute Auto 0.4 X10*3/uL (0.1-1.2); Monocytes Percent Auto 6.7 % (2-11); Neutrophils Absolute Auto 4.5 x10*3/uL (2.0-8.3); Neutrophils Percent Auto 77.4 % (45-73); Platelet Count 308 X10*3/uL (160-400); Red Blood Count 4.95 X10*6/uL (4.60-5.80); Red Cell Distribution Width 13.6 % (11.0-16.0); White Blood Count 5.8 X10*3/uL (4.8-10.8)
[2022-11-02 11:52] LABS: Alanine Aminotransferase 30 U/L (0-40); Albumin Level 4.2 g/dL (3.5-5.0); Alkaline Phosphatase 75 U/L (39-117); Anion Gap 11 (12-20); Aspartate Amino Transferase 25 U/L (5-37); Bilirubin Total 0.6 mg/dL (0.0-1.0); Blood Urea Nitrogen 11 mg/dL (9-16); Calcium 9.2 mg/dL (8.4-10.2); Carbon Dioxide 27 mmol/L (22-29); Chloride 107 mmol/L (96-108); Cholesterol 169 mg/dL; Estimated Glomerular Filt Rate > 60; Glucose Fasting 110 mg/dL (60-99); HDL Cholesterol 43 mg/dL; LDL Cholesterol Calculated 94 mg/dl; Potassium 4.9 mmol/L (3.3-5.1); Sodium 140 mmol/L (135-145); Total Protein 6.5 g/dL (6.5-8.0); Triglycerides 163 mg/dL
[2022-11-02 12:37] LABS: Prostate Specific Antigen 0.32 ng/mL (<0.05-4.0); Vitamin D 25-OH Total 29.5 ng/mL (>30)
== END 2022-11-02 08:28 | disposition home or self-care (01) ==
LOC: HO.HMGCLDS 08:27
PROVIDERS: PCP Internal Medicine Medical Oncology; Visit Provider Internal Medicine Medical Oncology
DX: C76.0 Malignant neoplasm of head, face and neck (principal); E78.2 Mixed hyperlipidemia; Z12.5 Encounter for screening for malignant neoplasm of prostate
CPT/HCPCS: 36415; 80053; 80061; 82306; 84153; 85025

== ENCOUNTER 2023-01-18 08:19 | Outpatient (REF) | payer MEDICAID, SELFPAY ==
[2023-01-18 11:04] LABS: MANUAL DIFF FLAG NO
[2023-01-18 11:25] LABS: Basophils Absolute Auto 0.1 X10*3/uL (0.0-0.2); Basophils Percent Auto 1.3 % (0-2); Eosinophils Absolute Auto 0.2 X10*3/uL (0.0-0.4); Eosinophils Percent Auto 2.5 % (0-4); Hematocrit 46.4 % (42.0-52.0); Hemoglobin 15.5 g/dl (14.0-18.0); Imm Gran Abs Auto 0.02 X10*3/uL (0.00-0.03); Imm Gran Pct Auto 0.3 % (0.0-0.4); Lymphocytes Absolute Auto 0.9 X10*3/uL (1.2-4.9); Lymphocytes Percent Auto 15.7 % (20-40); Mean Corpuscular HGB Conc 33.4 g/dl (31.0-36.0); Mean Corpuscular Hemoglobin 30.5 pg (27.0-33.0); Mean Corpuscular Volume 91.2 fL (80.0-98.0); Mean Platelet Volume 9.1 fL (9.4-12.4); Monocytes Absolute Auto 0.6 X10*3/uL (0.1-1.2); Monocytes Percent Auto 9.4 % (2-11); Neutrophils Absolute Auto 4.2 x10*3/uL (2.0-8.3); Neutrophils Percent Auto 70.8 % (45-73); Platelet Count 319 X10*3/uL (160-400); Red Blood Count 5.09 X10*6/uL (4.60-5.80); Red Cell Distribution Width 13.4 % (11.0-16.0)
[2023-01-18 11:41] LABS: Alanine Aminotransferase 28 U/L (0-40); Albumin Level 4.3 g/dL (3.5-5.0); Alkaline Phosphatase 78 U/L (39-117); Anion Gap 12 (12-20); Aspartate Amino Transferase 27 U/L (5-37); Bilirubin Total 0.7 mg/dL (0.0-1.0); Blood Urea Nitrogen 10 mg/dL (9-16); Calcium 9.6 mg/dL (8.4-10.2); Carbon Dioxide 25 mmol/L (22-29); Chloride 106 mmol/L (96-108); Cholesterol 168 mg/dL; Estimated Glomerular Filt Rate > 60; Glucose Fasting 113 mg/dL (60-99); HDL Cholesterol 45 mg/dL; LDL Cholesterol Calculated 97 mg/dl; Potassium 5.1 mmol/L (3.3-5.1); Sodium 138 mmol/L (135-145); Triglycerides 132 mg/dL
[2023-01-18 11:59] LABS: Free T4 (Free Thyroxine) 0.71 ng/dL (0.71-1.85); Prostate Specific Antigen 0.37 ng/mL (<0.05-4.0); Thyroid Stimulating Hormone 4.44 uIU/mL (0.32-4.0)
== END 2023-01-18 08:20 | disposition home or self-care (01) ==
LOC: HO.HMGCLDS 08:19
PROVIDERS: PCP Internal Medicine Medical Oncology; Visit Provider Internal Medicine Medical Oncology
DX: Z00.00 Encounter for general adult medical examination without abnormal findings (principal); Z12.5 Encounter for screening for malignant neoplasm of prostate; E78.2 Mixed hyperlipidemia; N40.1 Benign prostatic hyperplasia with lower urinary tract symptoms; E66.3 Overweight
CPT/HCPCS: 36415; 80053; 80061; 84153; 84439; 84443; 85025

== ENCOUNTER → 2023-02-13 11:07 | Outpatient (BNVA) | payer MEDICAID, SELFPAY | PROVIDERS: Visit Provider Urology | DX: N32.3 Diverticulum of bladder (principal); N40.0 Benign prostatic hyperplasia without lower urinary tract symptoms | CPT/HCPCS: 51798; 99212 ==

== ENCOUNTER 2023-04-25 09:02 | Outpatient (REF) | payer MEDICAID, SELFPAY ==
[2023-04-25 11:49] LABS: MANUAL DIFF FLAG NO
[2023-04-25 11:55] LABS: Basophils Absolute Auto 0.1 X10*3/uL (0.0-0.2); Basophils Percent Auto 1.1 % (0-2); Eosinophils Absolute Auto 0.1 X10*3/uL (0.0-0.4); Eosinophils Percent Auto 1.8 % (0-4); Hematocrit 48.5 % (42.0-52.0); Hemoglobin 15.9 g/dl (14.0-18.0); Imm Gran Abs Auto 0.04 X10*3/uL (0.00-0.03); Imm Gran Pct Auto 0.7 % (0.0-0.4); Lymphocytes Absolute Auto 0.7 X10*3/uL (1.2-4.9); Lymphocytes Percent Auto 13.6 % (20-40); Mean Corpuscular HGB Conc 32.8 g/dl (31.0-36.0); Mean Corpuscular Hemoglobin 29.3 pg (27.0-33.0); Mean Corpuscular Volume 89.3 fL (80.0-98.0); Mean Platelet Volume 8.9 fL (9.4-12.4); Monocytes Absolute Auto 0.6 X10*3/uL (0.1-1.2); Monocytes Percent Auto 11.5 % (2-11); Neutrophils Absolute Auto 3.9 x10*3/uL (2.0-8.3); Neutrophils Percent Auto 71.3 % (45-73); Platelet Count 303 X10*3/uL (160-400); Red Blood Count 5.43 X10*6/uL (4.60-5.80); Red Cell Distribution Width 13.3 % (11.0-16.0); White Blood Count 5.5 X10*3/uL (4.8-10.8)
[2023-04-25 12:27] LABS: Alanine Aminotransferase 43 U/L (0-40); Albumin Level 4.4 g/dL (3.5-5.0); Alkaline Phosphatase 83 U/L (39-117); Anion Gap 15 (12-20); Aspartate Amino Transferase 44 U/L (5-37); Bilirubin Total 0.5 mg/dL (0.0-1.0); Blood Urea Nitrogen 9 mg/dL (9-16); Calcium 9.8 mg/dL (8.4-10.2); Carbon Dioxide 25 mmol/L (22-29); Chloride 106 mmol/L (96-108); Cholesterol 186 mg/dL (<200); Estimated Glomerular Filt Rate > 60; Glucose Fasting 110 mg/dL (60-99); HDL Cholesterol 41 mg/dL (>40); LDL Cholesterol Calculated 95 mg/dL (<100); Potassium 5.1 mmol/L (3.3-5.1); Sodium 141 mmol/L (135-145); Total Protein 7.5 g/dL (6.5-8.0); Triglycerides 253 mg/dL (<150)
== END 2023-04-25 09:03 | disposition home or self-care (01) ==
LOC: HO.HMGCLDS 09:02
PROVIDERS: PCP Internal Medicine Medical Oncology; Visit Provider Internal Medicine Medical Oncology
DX: E78.2 Mixed hyperlipidemia (principal); C76.0 Malignant neoplasm of head, face and neck; E66.3 Overweight
CPT/HCPCS: 36415; 80053; 80061; 85025

== ENCOUNTER 2023-04-25 13:17 | Outpatient (REF) | payer MEDICAID, SELFPAY ==
--- NOTE | ~2023-04-25 | XR_ITS ---
EXAMINATION: XR CHEST CLINICAL INFORMATION: History of head and neck cancer; evaluate right apical opacity COMPARISON: Correlation is made with CT dated 02/06/2022 TECHNIQUE: PA, lateral and apical lordotic views of the chest were obtained. FINDINGS: The lungs are normally expanded. No mass or airspace consolidation is evident. No significant abnormality is seen at the lung apices. There is mild prominence of the markings in the lower lungs bilaterally which likely represents chronic lung disease. The pleural spaces are clear. The mediastinum appears within normal limits. XR/XR chest w apical lordotic IMPRESSION: No evidence of mass or metastatic disease. Prominent reticular lung markings in the lower lungs bilaterally, likely representing chronic fibrotic changes. Clinical correlation is recommended. Interval follow-up could be considered.
== END 2023-04-25 13:18 | disposition home or self-care (01) ==
LOC: HO.XRAY 13:17
PROVIDERS: PCP Internal Medicine Medical Oncology; Visit Provider Internal Medicine Medical Oncology
DX: C76.0 Malignant neoplasm of head, face and neck (principal)
CPT/HCPCS: 71047

== ENCOUNTER 2023-10-17 14:11 | Outpatient (AMB) | payer MEDICARE, SELFPAY ==
--- NOTE | 2023-10-17 14:15 | A.OFFVIS_ITS ---
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 He is a patient of Dr. Sanchez. He seen for following urologic conditions - lower urinary tract symptoms PVR 13 cc Effective emptying Continue surveillance Prior TURP Significant improved stream 2 bladder diverticular at time Initial PVR 160 Discussed diverticulectomy At this stage will continue to follow as long as residuals remain within reasonable range Lower Urinary Tract Symptoms: At GreenLight laser of prostate with incision and ablation of diverticula Current visit is for further evaluation of, lower urinary tract symptoms, predominate obstructive symptoms. Current treatment includes no medications - 07/11 GL prostatectomy Prostate Symptom Score 8/19 , Moderate (9-19), Bother 4. Symptoms include 8/19 Moderate , incomplete emptying, nocturia (>2), and are progressing. Results from testing include renal/bladder us Yes date 05/02/2019 PVR 200 Two 4 cm bladder diverticulum seen on ultrasound prostate size 25 PSA 05/08 0.5, 6/ 230.4 Prostate volume 30-50gm. 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 Basal cell carcinoma BPH (benign prostatic hyperplasia) Bladder diverticulum Bladder outlet obstruction Incomplete emptying of bladder Weak urinary stream Surgical History Hx of tonsillectomy H/O umbilical hernia repair History of appendectomy History of bowel resection History of hernia repair Family History Father Myocardial infarct Diabetes mellitus HTN (hypertension) Mother Asthma Acute Crohn's disease Arthritis Social History Patient Tobacco Use Status: Former Tobacco user Tobacco use type: Cigarette Review of Systems Const Denies chills and Denies fever(s) Card Reports no additional complaints and Denies syncope Resp Denies cough GI Denies abdominal pain and Denies heartburn Reports as per HPI and Denies change in libido Neuro Denies syncope Psych Denies change in libido Endo Denies change in libido Physical Exam Const General: cooperative, healthy appearing, comfortable and no acute distress Orientation/consciousness: patient oriented x3 HEENT Face and sinus: Yes normal facial exam Mouth: moist mucous membranes Neck Neck: Yes normal visual inspection, Yes full ROM and Yes trachea midline Chest Chest palpation & inspection: normal inspection of the chest Resp Effort & Inspection: normal respiratory effort, able to speak in complete sentences and no respiratory distress GI Inspection: Yes normal to inspection Back/Spine/Pelvis Cervical Spine: normal cervical lordosis Thoracic/Lumbar Spine: thoracic and lumbar spine normal to inspection Skin General skin exam: no rashes or lesions noted Neuro General: patient oriented x3, gait normal, tone normal and moves all extremities Extrem General: Yes normal to inspection and Yes capillary refill normal Assessment & Plan Assessment & Plan (1) Bladder outlet obstruction: Code(s): N32.0 - Bladder-neck obstruction Plan Twelve month follow-up bladder ultrasound Orders: Orders AMB Post Void Residual by ultrasound Today R33.9 - Retention of urine, unspecified US bladder 365 Days N32.0 - Bladder-neck obstruction, R39.12 - Poor urinary stream Patient Instructions: Imaging studies, laboratory and physical exam results were discussed and reviewed in detail. No major barriers to patient understanding were identified. An opportunity to ask questions regarding the treatment plan was provided. All questions were answered. The patient expressed understanding and agreement with the above treatment plan. The patient is aware they should contact our office by phone for worsening of their current condition or the appearance of new urologic symptoms. Compliance is encouraged with any medications and followup testing that is ordered. It is a privilege to participate in the urologic care of your patient. If you have any questions or concerns regarding treatment for the above conditions, or other urologic issues, please do not hesitate to contact me. The office telephone contact is [phone]. This note is constructed using voice recognition software. While every effort has been made to ensure accuracy motor pool clerk errors may have been included. Yours sincerely, Dr Ady Patton MD, [facility] - Urology Providers of Expert, Compassionate Care for the Genitourinary System Coding Level of Care Code Est Pt Level 3 (63100) Diagnoses Bladder outlet obstruction N32.0
== END 2023-10-17 14:50 | disposition home or self-care (01) ==
PROVIDERS: PCP Internal Medicine Medical Oncology; Visit Provider Urology
DX: N32.0 Bladder-neck obstruction (principal)
CPT/HCPCS: 99213

== ENCOUNTER → 2023-10-17 14:11 | Outpatient (BNVA) | payer MEDICARE, SELFPAY | PROVIDERS: PCP Internal Medicine Medical Oncology; Visit Provider Urology | DX: N32.0 Bladder-neck obstruction (principal) | CPT/HCPCS: 99212 ==

== ENCOUNTER 2023-10-30 08:33 | Outpatient (REF) | payer MEDICARE, SELFPAY ==
[2023-10-30 11:07] LABS: MANUAL DIFF FLAG NO
[2023-10-30 11:31] LABS: Basophils Absolute Auto 0.1 X10*3/uL (0.0-0.2); Basophils Percent Auto 1.4 % (0-2); Eosinophils Absolute Auto 0.1 X10*3/uL (0.0-0.4); Eosinophils Percent Auto 1.6 % (0-4); Hematocrit 45.7 % (42.0-52.0); Hemoglobin 14.9 g/dl (14.0-18.0); Imm Gran Abs Auto 0.01 X10*3/uL (0.00-0.03); Imm Gran Pct Auto 0.2 % (0.0-0.4); Lymphocytes Absolute Auto 0.9 X10*3/uL (1.2-4.9); Lymphocytes Percent Auto 17.3 % (20-40); Mean Corpuscular HGB Conc 32.6 g/dl (31.0-36.0); Mean Corpuscular Hemoglobin 29.6 pg (27.0-33.0); Mean Corpuscular Volume 90.9 fL (80.0-98.0); Mean Platelet Volume 8.8 fL (9.4-12.4); Monocytes Absolute Auto 0.4 X10*3/uL (0.1-1.2); Monocytes Percent Auto 8.5 % (2-11); Neutrophils Absolute Auto 3.6 x10*3/uL (2.0-8.3); Platelet Count 289 X10*3/uL (160-400); Red Blood Count 5.03 X10*6/uL (4.60-5.80); Red Cell Distribution Width 13.2 % (11.0-16.0)
[2023-10-30 11:48] LABS: Alanine Aminotransferase 33 U/L (0-40); Albumin Level 4.2 g/dL (3.5-5.0); Alkaline Phosphatase 74 U/L (39-117); Anion Gap 10 (12-20); Aspartate Amino Transferase 28 U/L (5-37); Bilirubin Total 0.5 mg/dL (0.0-1.0); Blood Urea Nitrogen 13 mg/dL (9-16); Carbon Dioxide 29 mmol/L (22-29); Chloride 107 mmol/L (96-108); Cholesterol 155 mg/dL (<200); Estimated Glomerular Filt Rate > 60; Glucose Fasting 120 mg/dL (60-99); HDL Cholesterol 41 mg/dL (>40); LDL Cholesterol Calculated 84 mg/dL (<100); Potassium 4.9 mmol/L (3.3-5.1); Sodium 141 mmol/L (135-145); Total Protein 7.1 g/dL (6.5-8.0); Triglycerides 151 mg/dL (<150)
[2023-10-30 12:05] LABS: Prostate Specific Antigen 0.41 ng/mL (<0.05-4.0)
== END 2023-10-30 08:34 | disposition home or self-care (01) ==
LOC: HO.HMGCLDS 08:33
PROVIDERS: PCP Internal Medicine Medical Oncology; Visit Provider Internal Medicine Medical Oncology
DX: Z12.5 Encounter for screening for malignant neoplasm of prostate (principal); E78.2 Mixed hyperlipidemia; N40.1 Benign prostatic hyperplasia with lower urinary tract symptoms; E66.9 Obesity, unspecified
CPT/HCPCS: 36415; 80053; 80061; 84153; 85025

== ENCOUNTER 2023-12-04 09:57 | Outpatient (REF) | payer MEDICARE, SELFPAY ==
[2023-12-04 16:56] LABS: Free T4 (Free Thyroxine) 0.82 ng/dL (0.71-1.85); Thyroid Stimulating Hormone 2.98 uIU/mL (0.32-4.0)
== END 2023-12-04 09:58 | disposition home or self-care (01) ==
LOC: HO.HMGCLDS 09:57
PROVIDERS: PCP Internal Medicine Medical Oncology; Visit Provider Internal Medicine Medical Oncology
DX: Z00.00 Encounter for general adult medical examination without abnormal findings (principal); E66.9 Obesity, unspecified
CPT/HCPCS: 36415; 84439; 84443

== ENCOUNTER 2024-10-10 11:18 | Outpatient (REF) | payer MEDICARE, SELFPAY ==
--- NOTE | ~2024-10-10 | US_ITS ---
EXAMINATION: US PELVIS LIMITED (BLADDER) CLINICAL INFORMATION: Poor urination strain. COMPARISON: April 25, 2019. TECHNIQUE: Real-time imaging of the bladder. FINDINGS: BLADDER: Fluid-filled with a 3 cm saccular anechoic abnormality in the posterior right wall. Bilateral ureteral jets are demonstrated. Prevoid bladder volume is 158 mL. Postvoid bladder volume is 69 mL. Status post TURP US/US bladder IMPRESSION: 69 cc urine retention in a post void image. 3 cm diverticulum, posterior right bladder.. Electronically signed by: Nathaniel Alexis MD 10/13/2024 08:59 AM EST
--- OUTSIDE RECORDS SUMMARY | 2024-10-10 12:25 | XMS_ITS ---
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 Name Role Phone Thiago Sanchez Primary Care Provider [phone] REASON FOR VISIT Follow up Social History Sex Assigned At : Social History Observation Description Sex Assigned At Male Encounters Encounter Location Date Provider Diagnosis Thiago Sanchez III, MD [address] [place] [address] [place] [address] 12/17/2023 Thiago Sanchez Plan Of Treatment Next Appt Details Provider Name:Thiago Sanchez, 11/17/2024 10:00:00 AM, [address] [place] [address] [place], [address], Progress Notes * Marisel MEREDITHnDOB: [birth year] (64 yo M)Acc No.[id number]:12/17/2023 Progress Notes Patient:?Erich MEREDITH Provider:?Thiago Sanchez MD :[id number]???Age:63 Y???Sex:Male Praful e:12/17/2023 Address:[address] [place] [address] [id number] Subjective: * Chief Complaints: * ???1. Follow up. * Medical History:? Objective: * Vitals:? Assessment: Plan: * Treatment: * Images: * The named appointment provid er may or may not be the originator of this progress note, and it is not deemed complete until electronically signed by the appointment provider. Sign off status: Pending * Provider:?Thiago Sanchez MD Date:?11/19 Generated for Tuyet miller/Susan/Chuck on:?10/10/2024 12:24 PM EST
--- OUTSIDE RECORDS SUMMARY | 2024-10-10 12:25 | XMS_ITS ---
Author Organization Thiago Sanchez III, MD Address [address] [address] Care Team Providers Care Fund Manager Name Role Phone Thiago Sanchez Primary Care Provider [phone] Allergies Allergen (clinical drug ingredient) Drug/Non Drug Allergy documented on EMR Reaction Allergy Type Onset Date Status Bee Sting Unknown Allergy Active Levaquin Unknown Drug Allergy Active Ceftin Unknown Drug Allergy Active Results Component Value Reference Range Notes URINE DIP STICK Reviewed date:11/15/2023 09:50:48 AM Interpretation: Performing Lab: Notes/Report: SG 1.010 1.005 - 1.025 pH 6.0 5.0 - 9.0 COLLETTE Negative Negative - NIT Negative Negative - PRO 15 Negative - Trace GLU Negative Negative - KET Negative Negative - UBG 0.2 0.1 - 1.8 MCKAYLA Negative 0.2 - 1.3 BLD Negative Negative - REASON FOR VISIT Annual Exam Medications Medication SIG (Take, Route, Frequency, Duration) Notes Start Date End Date Status Multivitamin Active Sodium Fluoride 5000 PPM 1.1 % USE DIRECTED ON BOX Dental Active Simvastatin 20 MG TAKE 1 TABLET BY RUBIN TH EVERY EVENING ORALLY ONCE A DAY 90 DAYS Active Cevimeline HCl 30 MG TAKE 1 CAPSULE BY M OUTH THREE TIMES A DAY FOR 30 DAYS Active Levothyroxine Sodium 25 MCG 1 tablet in the morning on an empty stomach Orally Once a day 02/13/2023 Active PARoxetine HCl 10 MG TAKE 1 TABLET BY MO UTH EVERY DAY IN THE MORNING FOR 90 DAYS Active Fish Oil Active Social History Tobacco Use: Social History Observation Description Date Details (start date - stop date) Former Smoker NA - NA Sex Assigned At : Social History Observation Description Sex Assigned At Male Tobacco Use/Smoking Question Answer Notes Patient is a former smoker How long has it been since you last smoked? 1-5 years Additional Findings: Tobacco Non-User Ex-cigaret te smoker Alcohol Screen Question Answer Notes Did you have a drink contain ing alcohol in the past year? Yes How often did you have a dri nk containing alcohol in the past year? 2 to 3 times a week (3 points) How many drinks did you have on a typical day when you were drinking in the past year? 1 or 2 drinks (0 point) How often did you have 6 or more drinks on one occasion in the past year? Never (0 point) Points 3 Interpretation Negative Vital Signs Temperature 97.7 degrees Fahrenheit 11/15/19 24 Blood pressure systolic 126 mm Hg 11/15/19 24 Blood pressure diastolic 90 mm Hg 024 Heart Rate 74 /min 11/15/2023 Height 66 in 11/15/2023 Weight 202 lbs 11/15/2023 BMI 32.6 kg/m2 11/15/2023 Encounters Encounter Location Date Provider Diagnosis Thiago Sanchez III, MD [address] [place] [address] [place] [address] 11/15/2023 Thiago Sanchez Mixed hyperlipidemia E78.2 ; Obesity (BMI 30.0-34.9) E66.9 ; Former smoker Z87.891 ; Benign prostatic hyperplasia with lower urinary tract symptoms N40.1 and Head and neck cancer C76.0 Assessments Encounter Date Diagnosis (ICD Code) Assessment Notes Treat ment Notes Treatment Clinical Notes 11/15/2023 Mixed hyperlipidemia (ICD-10 - E78.2) His lipid profile is in the target rangeWith a slightly elevated triglyceride level. No change in his regimen was needed today.We discussed his diet today. 11/15/2023 Obesity (BMI 30.0-34.9) (ICD-10 - E66.9) His body mass index is 32. His appetite is good. There is no sign of reecurrent oral cancer. We discussed diet and nutrittion. We made a plan to lose weight at a rate of one half of a pound per week. 11/15/2023 Former smoker (ICD-1 0 - Z87.891) He is highly motivated not to smoke. We discussed a plan to prevent relapse in times of stress and illness. 11/15/2023 Benign prostatic hyperplasia with lower urinary tract symptoms (ICD-10 - N40.1) He rises from sleep once or twice a night depending upon fluid intake. We discussed lifestyle modification as a way to reduce nocturnal urination. 11/15/2023 Head and neck cancer (ICD-10 - C76.0) There was no sign of recurrent disease on today's examination. There was no sign of a new primary. Plan Of Treatment Medication Medication Name Sig Start Date Stop Date Notes Multivitamin Sodium Fluoride 5000 PPM 1.1 % USE DI RECTED ON BOX Dental Simvastatin 20 MG TAKE 1 TABLET BY RUBIN TH EVERY EVENING ORALLY ONCE A DAY 90 DAYS Cevimeline HCl 30 MG TAKE 1 CAPSULE BY M OUTH THREE TIMES A DAY FOR 30 DAYS Levothyroxine Sodium 25 MCG 1 tablet in the morning on an empty stomach Orally Once a day 02/13/2023 PARoxetine HCl 10 MG TAKE 1 TABLET BY MO UTH EVERY DAY IN THE MORNING FOR 90 DAYS Fish Oil Pending Test Test Name Order Date TSH (THYROID STIMULATING HORMONE) 2023 Free T4 (Free Thyroxine) 11/15/2023 Next Appt Details Follow Up: 4 Weeks, Reason: OV Provider Name:Thiago Sanchez, 11/17/2024 10:00:00 AM, [address] [place] [address] [place], [address], Progress Notes * Marisel MAUROnDOB: [birth year] (63 yo M)Acc No.[id number]:11/15/2023 Progress Notes Patient:?Erich Mauro Provider:?Thiago Sanchez MD :[id number]???Age:63 Y???Sex:Male Praful e:11/15/2023 Address:[address] [place], [place] [id number] Subjective: * Chief Complaints: * ???Annual Exam * HPI: ???Depression Screening:? He returns to the office at the age of 63 for his annuall physical examination. His diastolic blood pressure is slightly high today. He is feeling generally well. He has no new sores or lesions and his oral cavity. His family is concerned about his diastolic blood pressure of 90. Her repeat blood pressure in a few weeks was scheduled. He may need his medications adjusted. 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 ?PHQ-9?Little interest or pleasure in doing things?Not at all ?Feeling down, depressed, or hopeless?Not at all ?Trouble falling or staying asleep, or sleeping too much?More than half the days ?Feeling tired or having little energy?More than half the days ?Poor appetite or overeating?Not at all ?Feeling bad about yourself or that you are a failure, or have let yourself or your family down?Not at all ?Trouble concentrating on things, such as reading the newspaper or watching television?Several days ?Moving or speaking so slowly that other people could have noticed; or the opposite, being so fidgety or restless that you have been moving around a lot more than usual?Not at all ?Thoughts that you would be better off or of hurting yourself in some way?Not at all ?Total Score?5 ?Interpretation?Mild Depression ???COVID-19 Screening:?Questions?Have you experienced fever, chills, cough, sore throat, shortness of breath, difficulty breathing, muscle aches, loss of taste or smell??No ?Have you been exposed to the virus within the last 10 days??No ?Have you travelled internationally in the last 10 days??No ?Have you been exposed to COVID-19 in the past??No ???SDOH Questions:?SDOH Questions?In the past year have you been worried about losing your housing??No ?In the past year have you or any family members you live with been unable to get any of the following when it was really needed? Check all that apply:?Decline to answer * ROS:?General/Constitutional:?pain?only normal aches and pains.?Chills?denies.?Fatigue?admits.?Fever?denies.?ENT:?Decreased hearing?mild.?Respiratory:?Cough?denies.?Cardiovascular:?Chest pain with exertion?denies.?Dyspnea on exertion?denies.?Shortness of breath?denies.?Gastrointestinal:?Constipation?occasional.?Decreased appetite?denies.?Diarrhea?denies.?Heartburn?denies.?Nausea?denies.?Rectal bleeding?denies.?Vomiting?denies.?Hematology:?bruising?denies.?petechiae?denies.?Swollen glands?none have been noted.?Genitourinary:?Frequent urination?once a night.?Musculoskeletal:?Muscle aches?denies.?Painful joints?denies.?Sciatica?denies.?Weakness?denies.?Skin:?Itching?denies.?Rash?denies.?Skin lesion(s)?denies.?Neurologic:?Difficulty speaking?denies.?Dizziness?denies.?Headache?denies.?Low back pain?denies.?Psychiatric:?Depressed mood?denies.? * Medical History:? 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 Sister drug overdose and alcoholism, Liver failure, Aids, His sister has a history of mental illness and addiction and substance use disorder..?Paternal Grand Father: , diagnosed with DM.?Paternal Grand Mother: , diagnosed with DM.?Maternal Grand Father: , diagnosed with CVD.?Maternal Grand Mother: , diagnosed with CVD.?1 brother(s) - healthy. .? He has no children. He is not aware of any other family history of substance use disorder, orientation or mental illness. * Social History:?Tobacco Use:?Tobacco Use/Smoking?Patient is a?former smoker ?How long has it been since you last smoked??1-5 years ?Additional Findings: Tobacco Non-User?Ex-cigarette smoker ???Drugs/Alcohol:?Drugs?Have you used drugs other than those for medical reasons in the past 12 months??Yes ?Marijuana??Yes Gummies ?Alcohol Screen?Did you have a drink containing alcohol in the past year??Yes ?How often did you have a drink containing alcohol in the past year??2 to 3 times a week (3 points) ?How many drinks did you have on a typical day when you were drinking in the past year??1 or 2 drinks (0 point) ?How often did you have 6 or more drinks on one occasion in the past year??Never (0 point) ?Points?3 ?Interpretation?Negative ???He was born and [place], [place]. He is single with no children. 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 He has no toxic exposures. He wears glasses. No plugs at work. * Medications:?TakingLevothyro xine Sodium 25 MCG Tablet 1 tablet in the morning on an empty stomach Orally Once a dayFish Oil Multivitamin Cevimeline HCl 30 MG Capsule TAKE 1 CAPSULE BY MOUTH THREE TIMES A DAY FOR 30 DAYS Simvastatin 20 MG Tablet TAKE 1 TABLET BY MOUTH EVERY EVENING ORALLY ONCE A DAY 90 DAYS Sodium Fluoride 5000 PPM 1.1 % Paste USE DIRECTED ON BOX Dental PARoxetine HCl 10 MG Tablet TAKE 1 TABLET BY MOUTH EVERY DAY IN THE MORNING FOR 90 DAYS Taking Levothyroxine Sodium 25 MCG Tablet 1 tablet in the morning on an empty stomach Orally Once a dayTaking Fish Oil Taking Multivitamin Taking Cevimeline HCl 30 MG Capsule TAKE 1 CAPSULE BY MOUTH THREE TIMES A DAY FOR 30 DAYS Taking Simvastatin 20 MG Tablet TAKE 1 TABLET BY MOUTH EVERY EVENING ORALLY ONCE A DAY 90 DAYS Taking Sodium Fluoride 5000 PPM 1.1 % Paste USE DIRECTED ON BOX Dental Taking PARoxetine HCl 10 MG Tablet TAKE 1 TABLET BY MOUTH EVERY DAY IN THE MORNING FOR 90 DAYS DiscontinuedCoQ-10 Medication List reviewed and reconciled with the patientDiscontinued CoQ-10 Medication List reviewed and reconciled with the patient * Allergies:?CeftinLevaquinBesherlyn Don[Allergies Verified] Objective: * Vitals:?Ht: 66, Wt:202, BMI: 32.6, BP:126/90, HR:74, Temp:97.7, Wt-k.63. * ???Past Orders: Lab:Prostate Specific Antige n * Order Date 10/30/2023 01/18/2023 11/02/2022 Prostate Specific Antigen 0.41 (Ref Range: <0.05-4.0 ng/mL) 0.37 (Ref Range: <0.05-4.0 ng/mL) 0.32 (Ref Range: <0.05-4.0 ng/mL) * Lab:Lipid Panel * Order Date 10/30/2023 04/25/2023 01/18/2023 Triglycerides 151?H (Ref Range: <150 mg/dL) 253?H (Ref Range: <150 mg/dL) 132 (Ref Range: mg/dL) Cholesterol 155 (Ref Range: <200 mg/dL) 186 (Ref Range: <200 mg/dL) 168 (Ref Range: mg/dL) LDL Cholesterol Calculated 84 (Ref Range: <100 mg/dL) 95 (Ref Range: <100 mg/dL) 97 (Ref Range: mg/dl) HDL Cholesterol 41 (Ref Range: >40 mg/dL) 41 (Ref Range: >40 mg/dL) 45 (Ref Range: mg/dL) * Lab:Comprehensive [place]. [place] Fast * Order Date 10/30/2023 04/25/2023 01/18/2023 Sodium 141 (Ref Range: 135-145 mmol/L) 141 (Ref Range: 135-145 mmol/L) 138 (Ref Range: 135-145 mmol/L) Bilirubin Total 0.5 (Ref Range: 0.0-1.0 mg/dL) 0.5 (Ref Range: 0.0-1.0 mg/dL) 0.7 (Ref Range: 0.0-1.0 mg/dL) Aspartate Amino Transferase 28 (Ref Range: 5-37 U/L) 44?H (Ref Range: 5-37 U/L) 27 (Ref Range: 5-37 U/L) Alanine Aminotransferase 33 (Ref Range: 0-40 U/L) 43?H (Ref Range: 0-40 U/L) 28 (Ref Range: 0-40 U/L) Total Protein 7.1 (Ref Range: 6.5-8.0 g/dL) 7.5 (Ref Range: 6.5-8.0 g/dL) 7.0 (Ref Range: 6.5-8.0 g/dL) Albumin Level 4.2 (Ref Range: 3.5-5.0 g/dL) 4.4 (Ref Range: 3.5-5.0 g/dL) 4.3 (Ref Range: 3.5-5.0 g/dL) Alkaline Phosphatase 74 (Ref Range: 39-117 U/L) 83 (Ref Range: 39-117 U/L) 78 (Ref Range: 39-117 U/L) Potassium 4.9 (Ref Range: 3.3-5.1 mmol/L) 5.1 (Ref Range: 3.3-5.1 mmol/L) 5.1 (Ref Range: 3.3-5.1 mmol/L) Chloride 107 (Ref Range: 96-108 mmol/L) 106 (Ref Range: 96-108 mmol/L) 106 (Ref Range: 96-108 mmol/L) Carbon Dioxide 29 (Ref Range: 22-29 mmol/L) 25 (Ref Range: 22-29 mmol/L) 25 (Ref Range: 22-29 mmol/L) Anion Gap 10?L (Ref Range: 12-20) 15 (Ref Range: 12-20) 12 (Ref Range: 12-20) Blood Urea Nitrogen 13 (Ref Range: 9-16 mg/dL) 9 (Ref Range: 9-16 mg/dL) 10 (Ref Range: 9-16 mg/dL) Creatinine 0.99 (Ref Range: 0.5-1.4 mg/dL) 1.06 (Ref Range: 0.5-1.4 mg/dL) 1.00 (Ref Range: 0.5-1.4 mg/dL) Estimated Glomerular Filt Rate > 60 > 60 > 60 Glucose Fasting 120?H (Ref Range: 60-99 mg/dL) 110?H (Ref Range: 60-99 mg/dL) 113?H (Ref Range: 60-99 mg/dL) Calcium 9.0 (Ref Range: 8.4-10.2 mg/dL) 9.8 (Ref Range: 8.4-10.2 mg/dL) 9.6 (Ref Range: 8.4-10.2 mg/dL) * Lab:Complete Blood Count Aut o Diff * Order Date 10/30/2023 04/25/2023 01/18/2023 White Blood Count 5.0 (Ref Range: 4.8-10.8 X10*3/uL) 5.5 (Ref Range: 4.8-10.8 X10*3/uL) 6.0 (Ref Range: 4.8-10.8 X10*3/uL) Red Blood Count 5.03 (Ref Range: 4.60-5.80 X10*6/uL) 5.43 (Ref Range: 4.60-5.80 X10*6/uL) 5.09 (Ref Range: 4.60-5.80 X10*6/uL) Hemoglobin 14.9 (Ref Range: 14.0-18.0 g/dl) 15.9 (Ref Range: 14.0-18.0 g/dl) 15.5 (Ref Range: 14.0-18.0 g/dl) Hematocrit 45.7 (Ref Range: 42.0-52.0 %) 48.5 (Ref Range: 42.0-52.0 %) 46.4 (Ref Range: 42.0-52.0 %) Mean Corpuscular Volume 90.9 (Ref Range: 80.0-98.0 fL) 89.3 (Ref Range: 80.0-98.0 fL) 91.2 (Ref Range: 80.0-98.0 fL) Mean Corpuscular Hemoglobin 29.6 (Ref Range: 27.0-33.0 pg) 29.3 (Ref Range: 27.0-33.0 pg) 30.5 (Ref Range: 27.0-33.0 pg) Mean Corpuscular HGB Conc 32.6 (Ref Range: 31.0-36.0 g/dl) 32.8 (Ref Range: 31.0-36.0 g/dl) 33.4 (Ref Range: 31.0-36.0 g/dl) Red Cell Distribution Width 13.2 (Ref Range: 11.0-16.0 %) 13.3 (Ref Range: 11.0-16.0 %) 13.4 (Ref Range: 11.0-16.0 %) Platelet Count 289 (Ref Range: 160-400 X10*3/uL) 303 (Ref Range: 160-400 X10*3/uL) 319 (Ref Range: 160-400 X10*3/uL) Mean Platelet Volume 8.8?L (Ref Range: 9.4-12.4 fL) 8.9?L (Ref Range: 9.4-12.4 fL) 9.1?L (Ref Range: 9.4-12.4 fL) Neutrophils Percent Auto 71.0 (Ref Range: 45-73 %) 71.3 (Ref Range: 45-73 %) 70.8 (Ref Range: 45-73 %) Imm Gran Pct Auto 0.2 (Ref Range: 0.0-0.4 %) 0.7?H (Ref Range: 0.0-0.4 %) 0.3 (Ref Range: 0.0-0.4 %) Lymphocytes Percent Auto 17.3?L (Ref Range: 20-40 %) 13.6?L (Ref Range: 20-40 %) 15.7?L (Ref Range: 20-40 %) Monocytes Percent Auto 8.5 (Ref Range: 2-11 %) 11.5?H (Ref Range: 2-11 %) 9.4 (Ref Range: 2-11 %) Eosinophils Percent Auto 1.6 (Ref Range: 0-4 %) 1.8 (Ref Range: 0-4 %) 2.5 (Ref Range: 0-4 %) Basophils Percent Auto 1.4 (Ref Range: 0-2 %) 1.1 (Ref Range: 0-2 %) 1.3 (Ref Range: 0-2 %) NRBC Pct Auto 0.0 (Ref Range: 0.0-0.2 /100WBC) 0.0 (Ref Range: 0.0-0.2 /100WBC) 0.0 (Ref Range: 0.0-0.2 /100WBC) Neutrophils Absolute Auto 3.6 (Ref Range: 2.0-8.3 x10*3/uL) 3.9 (Ref Range: 2.0-8.3 x10*3/uL) 4.2 (Ref Range: 2.0-8.3 x10*3/uL) Imm Gran Abs Auto 0.01 (Ref Range: 0.00-0.03 X10*3/uL) 0.04?H (Ref Range: 0.00-0.03 X10*3/uL) 0.02 (Ref Range: 0.00-0.03 X10*3/uL) Lymphocytes Absolute Auto 0.9?L (Ref Range: 1.2-4.9 X10*3/uL) 0.7?L (Ref Range: 1.2-4.9 X10*3/uL) 0.9?L (Ref Range: 1.2-4.9 X10*3/uL) Monocytes Absolute Auto 0.4 (Ref Range: 0.1-1.2 X10*3/uL) 0.6 (Ref Range: 0.1-1.2 X10*3/uL) 0.6 (Ref Range: 0.1-1.2 X10*3/uL) Eosinophils Absolute Auto 0.1 (Ref Range: 0.0-0.4 X10*3/uL) 0.1 (Ref Range: 0.0-0.4 X10*3/uL) 0.2 (Ref Range: 0.0-0.4 X10*3/uL) Basophils Absolute Auto 0.1 (Ref Range: 0.0-0.2 X10*3/uL) 0.1 (Ref Range: 0.0-0.2 X10*3/uL) 0.1 (Ref Range: 0.0-0.2 X10*3/uL) NRBC Abs Auto 0.000 (Ref Range: 0.0-0.012 X10*3/uL) 0.000 (Ref Range: 0.0-0.012 X10*3/uL) 0.000 (Ref Range: 0.0-0.012 X10*3/uL) * Examination: ???General Examination: ?GENERAL APPEARANCE:?pleasant, well nourished, well developed, in no acute distress, calm and relaxed , obese , man.?HEAD:?atraumatic, normocephalic.?EYES:?eomi, perrla, anicteric, conjugate.?EARS:?normal.?NOSE:?septum intact.?ORAL CAVITY:?normal, unremarkable, No sign of oral cancer, no ulcers no lesions.?NECK/THYROID:?no jugular venous distention, no carotid bruit, thyroid normal.?LYMPH NODES:?no enlarged lymph nodes,spleen normal.?SKIN:?no suspicious lesions, anicteric, Radiation thickening of skin of neck.?HEART:?no clicks, gallops, murmurs, or rubs, regular rhythm, S1, S2 normal, no s3, or vascular bruits.?LUNGS:?clear to auscultation .?BREASTS:??no masses palpable bilaterally.?ABDOMEN:?bowel sounds normal, no ascites, no organomegaly, no mass , centripital obesity.?RECTAL EXAM:?not examined.?MUSCULOSKELETAL:?extremities unremarkable, no clubbing, cyanosis or edema.?PERIPHERAL PULSES:?normal.?NEUROLOGIC:?alert and oriented, cranial nerves 2-12 grossly intact, deep tendon reflexes 2+ symmetrical, motor strength normal upper and lower extremities, sensory exam intact.?PSYCH:?alert, oriented.? Assessment: * Assessment: 1.?Mixed hyperlipidemia - E7 8.2 (Primary), His lipid profile is in the target rangeWith a slightly elevated triglyceride level. No change in his regimen was needed today.We discussed his diet today.?2.?Obesity (BMI 30.0-34.9) - E66.9, His body mass index is 32. His appetite is good. There is no sign of reecurrent oral cancer. We discussed diet and nutrittion. We made a plan to lose weight at a rate of one half of a pound per week.?3.?Former smoker - Z87.891, He is highly motivated not to smoke. We discussed a plan to prevent relapse in times of stress and illness. 4.?Benign prostatic hyperplasia with lower urinary tract symptoms - N40.1, He rises from sleep once or twice a night depending upon fluid intake. We discussed lifestyle modification as a way to reduce nocturnal urination.?5.?Head and neck cancer - C76.0, There was no sign of recurrent disease on today's examination. There was no sign of a new primary.? Plan: * Treatment: 2.?Obesity (BMI 30.0-34.9)?LAB: TSH (THYROID STIMULATING HORMONE) ?LAB: Free T4 (Free Thyroxine) 3.?Others? Continue PARoxetine HCl Tablet, 10 MG, TAKE 1 TABLET BY MOUTH EVERY DAY IN THE MORNING FOR 90 DAYS;?Continue Levothyroxine Sodium Tablet, 25 MCG, 1 tablet in the morning on an empty stomach, Orally, Once a day;?Continue Cevimeline HCl Capsule, 30 MG, TAKE 1 CAPSULE BY MOUTH THREE TIMES A DAY FOR 30 DAYS;?Continue Simvastatin Tablet, 20 MG, TAKE 1 TABLET BY MOUTH EVERY EVENING ORALLY ONCE A DAY 90 DAYS;?Continue Sodium Fluoride 5000 PPM Paste, 1.1 %, USE DIRECTED ON BOX, Dental.?? * Labs:? * ?Lab: URINE DIP STICK ? Value Reference Range ?SG 1.010 1.005 - 1.025 * ?pH 6.0 5.0 - 9.0 * ?COLLETTE Negative Negative - * ?NIT Negative Negative - * ?PRO 15 Negative - Trac e * ?GLU Negative Negative - * ?KET Negative Negative - * ?UBG 0.2 0.1 - 1.8 * ?MCKAYLA Negative 0.2 - 1.3 * ?BLD Negative Negative - * Procedure Codes:?91174 URINE -NO MICRO * Preventive Medicine:? ??Counseling:?Care goal follow-up plan:?Counseling for abnormal BMI given?Yes ?Above Normal BMI Follow-up?Dietary management education, guidance, and counseling, Dietary needs education, Exercise promotion: strength training, Exercise promotion: stretching, Feeding regime, Giving encouragement to exercise, Lifestyle education regarding diet, Nutrition / feeding management, Nutrition therapy, Prescribed activity/exercise education, Prescribed diet education, Prescribed dietary intake, Special diet education, Weight monitoring , Intervention, Order not done: Medical or Other reason not done ?Smoking/Tobacco Use?Patient counseled on the dangers of tobacco use and urged to quit.?11/14/2023 * Follow Up:?4 Weeks (Reason: OV) * Images: * Sign off status: Completed true * Provider:?Thiago Sanchez MD Date:?10/19 Generated for Tuyet miller/Susan/eTransmitting on:?10/10/2024 12:25 PM EST History and Physical Notes * HPI (History of Present Illness) Category Sub-Category Detail Notes Depression Screening PHQ-9 Little inte rest or pleasure in doing things: Not at all Feeling down, depressed, or hopeless: No t at all Trouble falling or staying a sleep, or sleeping too much: More than half the days Feeling tired or having little energy: M ore than half the days Poor appetite or overeating: Not at all Feeling bad about yourself o r that you are a failure, or have let yourself or your family down: Not at all Trouble concentrating on thi ngs, such as reading the newspaper or watching television: Several days Moving or speaking so slowly that other people could have noticed; or the opposite, being so fidgety or restless that you have been moving around a lot more than usual: Not at all Thoughts that you would be b ofelia off or of hurting yourself in some way: Not at all Total Score: 5 Interpretation: Mild Depression COVID-19 Screening Questions Have you had any new onset fever, chills, cough, congestion, sore throat, shortness of breath, muscle aches?: No Have you been exposed to the virus withi n the last 10 days?: No Have you travelled internationally in e last 10 days?: No Have you been exposed to COVID-19 in the past?: No SDOH Questions SDOH Questions In the past year have you been worried about losing your housing?: No In the past year have you or any family members you live with been unable to get any of the following when it was really needed? Check all that apply:: Decline to answer Examination Category Sub-Category Detail Notes General Examination GENERAL APPEARANCE: pleasant , well nourished, well developed, in no acute distress, calm and relaxed , obese , man HEAD: atraumatic, normocep halic EYES: eomi, perrla, anicte ashish, conjugate EARS: normal NOSE: septum intact NECK/THYROID: no jugular venous di stention, no carotid bruit, thyroid normal HEART: no clicks, gallops, murmurs, or rubs, regular rhythm, S1, S2 normal, no s3, or vascular bruits LUNGS: clear to auscultatio n ABDOMEN: bowel sounds normal, no ascites, no organomegaly, no mass , centripital obesity NEUROLOGIC: alert and oriented, cranial nerves 2-12 grossly intact, deep tendon reflexes 2+ symmetrical, motor strength normal upper and lower extremities, sensory exam intact SKIN: no suspicious lesion s, anicteric, Radiation thickening of skin of neck PERIPHERAL PULSES: normal BREASTS: no masses palpable b ilaterally MUSCULOSKELETAL: extremities unremark able, no clubbing, cyanosis or edema LYMPH NODES: no enlarged lymph no elisa,spleen normal RECTAL EXAM: not examined PSYCH: alert, oriented ORAL CAVITY: normal, unremarkable , No sign of oral cancer, no ulcers no lesions
--- OUTSIDE RECORDS SUMMARY | 2024-10-10 12:25 | XMS_ITS | Patient Health Record ---
Author Organization Thiago Sanchez III, MD Address [address] [place] [address] Care Team Providers Care Enrollment Counselor Name Role Phone Thiago Sanchez Primary Care Provider [phone] Allergies Allergen (clinical drug ingredient) Drug/Non Drug [...] 0.2 - 1.3 BLD Negative Negative - Complete Blood Count Auto Di ff Reviewed date:11/15/2023 09:26:15 AM Interpretation: Performing Lab:[facility], [address] [place] [id number] Notes/Report: White Blood Count 5.0 4.8-10.8 X10*3/uL Red Blood Count 5.03 4.60-5.80 X10*6/uL Hemoglobin 14.9 14.0-18.0 g/dl Hematocrit 45.7 42.0-52.0 % Mean Corpuscular Volume 90.9 80.0-98.0 fL Mean Corpuscular Hemoglobin 29.6 27.0-33.0 pg Mean Corpuscular HGB Conc 32.6 31.0-36.0 g/dl Red Cell Distribution Width 13.2 11.0-16.0 % Platelet Count 289 160-400 X10*3/uL Mean Platelet Volume 8.8 9.4-12.4 fL Neutrophils Percent Auto 71.0 45-73 % Imm Gran Pct Auto 0.2 0.0-0.4 % Lymphocytes Percent Auto 17.3 20-40 % Monocytes Percent Auto 8.5 2-11 % Eosinophils Percent Auto 1.6 0-4 % Basophils Percent Auto 1.4 0-2 % NRBC Pct Auto 0.0 0.0-0.2 /100WBC Neutrophils Absolute Auto 3.6 2.0-8.3 x10*3/u L Imm Gran Abs Auto 0.01 0.00-0.03 X10*3/uL Lymphocytes Absolute Auto 0.9 1.2-4.9 X10*3/u L Monocytes Absolute Auto 0.4 0.1-1.2 X10*3/uL Eosinophils Absolute Auto 0.1 0.0-0.4 X10*3/u L Basophils Absolute Auto 0.1 0.0-0.2 X10*3/uL NRBC Abs Auto 0.000 0.0-0.012 X10*3/uL Comprehensive [place]. Panel Fa st Reviewed date:11/15/2023 09:26:15 AM Interpretation: Performing Lab:[facility], [address] [place] [phone] Notes/Report: Sodium 141 135-145 mmol/L Potassium 4.9 3.3-5.1 mmol/L Chloride 107 96-108 mmol/L Carbon Dioxide 29 22-29 mmol/L Anion Gap 10 12-20 Blood Urea Nitrogen 13 9-16 mg/dL Creatinine 0.99 0.5-1.4 mg/dL Estimated Glomerular Filt Rate > 60 NOTE: For -Mosoth[place] individuals, multiply the result by 1.210. Chronic Kidney Disease: Estimated GFR < 60 mL/min/1.73m2 Severe Kidney Disease: Estimated GFR < 15 mL/min/1.73m2 Glucose Fasting 120 60-99 mg/dL A fasting glucose from 100-125 mg/dl is considered impaired (pre-diabetes). Calcium 9.0 8.4-10.2 mg/dL Bilirubin Total 0.5 0.0-1.0 mg/dL Aspartate Amino Transferase 28 5-37 U/L Alanine Aminotransferase 33 0-40 U/L Total Protein 7.1 6.5-8.0 g/dL Albumin Level 4.2 3.5-5.0 g/dL Alkaline Phosphatase 74 39-117 U/L Lipid Panel Reviewed date:11/15/2023 09:26:15 AM Interpretation: Performing Lab:[facility], [address] [place] [phone] Notes/Report: Triglycerides 151 <150 mg/dL Desirable Triglyceride: less than 150 mg/dL Borderline High Triglyceride 150-199 mg/dL High Triglyceride: 200-499 mg/dL Very High Triglyceride: greater than or equal to 5OO mg/dL Cholesterol 155 <200 mg/dL Desirable Cholesterol: less than 200 mg/dL Borderline High Cholesterol: 200-239 mg/dL High Cholesterol: greater than 239 mg/dL LDL Cholesterol Calculated 84 <100 mg/dL Desirable LDL: less than 100 mg/dL Near Optimal/Above Optimal LDL: 110-129 mg/dL Borderline High LDL: 130-159 mg/dL High LDL: 160-189 mg/dL Very High LDL: greater than or equal to 190 mg/dL HDL Cholesterol 41 >40 mg/dL Desirable HDL: greater than 40 mg/dL Note: This HDL assay may give artificially low results in patients with liver disease. Prostate Specific Antigen Reviewed date:11/15/2023 09:26:15 AM Interpretation: Performing Lab:[facility], [address] [place] [phone] Notes/Report: Prostate Specific Antigen 0.41 <0.05-4.0 ng/mL PSA methodology: [employer] i Chemiluminescent Microparticle Immunoassay (CMIA) Free T4 (Free Thyroxine) Reviewed date:01/28/2024 04:24:00 AM Interpretation: Performing Lab:[address] [phone] Notes/Report: Free T4 (Free Thyroxine) 0.82 0.71-1.85 ng/dL Thyroid Stimulating Hormone Reviewed date:01/28/2024 04:24:00 AM Interpretation: Performing Lab:[address] [phone] Notes/Report: Thyroid Stimulating Hormone 2.98 0.32-4.0 uIU/ mL Note: A sustained TSH level above 2.5 uIU/mL may warrant further investigation. TSH 3rd Generation ([employer]) Reason For Referral No Information Medications Medication SIG (Take, Route, Frequency, Duration) Notes Start Date End Date Status Cevimeline HCl 30 MG TAKE 1 CAPSULE BY M OUTH THREE TIMES A DAY FOR 30 DAYS 90 for 90 Active Multivitamin Active Fish Oil Active Simvastatin 20 MG 1 tablet in the even ing Orally Once a day for 90 days 05/16/2024 Active Levothyroxine Sodium 25 MCG TAKE 1 TABLE T BY MOUTH EVERY DAY IN THE MORNING ON EMPTY STOMACH FOR 30 DAYS for 90 Active PARoxetine HCl 10 MG TAKE 1 TABLET daily Orally Once a day for 90 days Active Sodium Fluoride 5000 PPM 1.1 % USE DIRECTED ON BOX Dental Active Simvastatin 20 MG TAKE 1 TABLET BY RUBIN TH EVERY EVENING ORALLY ONCE A DAY 90 DAYS Active Immunizations Vaccine Route Administration Date Status Comme nts COVID Pfizer Bivalent Unknown 05/10/2022 Administered COMIRNATY Pfizer-BioNTech Unknown 05/21/2023 Administer ed COVID PFIZER Unknown 11/19/2020 Administered Influenza, quad Unknown 05/21/2023 Administered COVID PFIZER Unknown 10/28/2020 Administered Influenza no Preserv 3 and > Unknown 06/08/2016 Adminis tered Influenza, quad Unknown 05/20/2019 Administered Influenza no Preserv 3 and > Unknown 05/30/2017 Adminis tered Influenza, quad Unknown 05/11/2020 Administered Td (adult) Unknown 05/30/2017 Administered Influenza, quad Unknown 05/23/2021 Administered RSV Adjuvant Unknown 08/03/2023 Administered Influenza, quad Unknown 05/11/2018 Administered Influenza, quad Unknown 05/10/2022 Administered COVID PFIZER Unknown 05/24/2021 Administered SHINGRIX Unknown 09/21/2023 Administered COVID-19 Moderna SPIKEVAX Unknown 05/14/2024 Administer ed SHINGRIX Unknown 11/26/2023 Administered PCV20 Unknown 11/26/2023 Administered Influenza, quad Unknown 05/14/2024 Administered Social History Tobacco Use: Social History Observation [...] Never (0 point) Points 3 Interpretation Negative Problems Problem Type SNOMED Code ICD Code Onset Dates Problem Status W/U Status Risk Notes Problem 1522360 Former smoker (Z87.891) Active confirmed He is highly motivated not to smoke. We discussed a plan to prevent relapse in times of stress and illness. Problem 695542139265621 Obesity (BMI 30.0-34.9) (E66.9) Active confirmed His body mass index is 32. His appetite is good. There is no sign of reecurrent oral cancer. We discussed diet and nutrittion. We made a plan to lose weight at a rate of one half of a pound per week. Problem 761843379 Mixed hyperlipidemia (E78.2) Active confirmed His lipid profile is in the target rangeWith a slightly elevated triglyceride level. No change in his regimen was needed today.We discussed his diet today. Problem 274399837 Head and neck cancer (C76.0) Active confirmed There was no sign of recurrent disease on today's examination. There was no sign of a new primary. Problem [id number] Benign prostatic hyperplasia with lower urinary tract symptoms (N40.1) Active confirmed He rises from sleep once or twice a night depending upon fluid intake. We discussed lifestyle modification as a way to reduce nocturnal urination. Problem 111720952 Incisional hernia, without obstruction or gangrene (K43.2) Active confirmed He is free of symptoms at the site of the scar. Problem [id number] Mass of both adrenal glands (E27.9) Active confirmed The masses are a CT scan in the old records. On March 15, 2018 showed bilateral adrenal masses with coarse calcification s. He is currently asymptomatic. Surveillance will continue Vital Signs Heart Rate 74 /min 11/15/2023 Temperature 97.7 degrees Fahrenheit 11/15/2023 Blood pressure diastolic 90 mm Hg 11/15/2023 Height 66 in 11/15/2023 Blood pressure systolic 126 mm Hg 11/15/2023 Weight 202 lbs 11/15/2023 BMI 32.6 kg/m2 11/15/2023 Encounters Encounter Location Date Provider Diagnosis Thiago Sanchez III, MD [address] [place] [address] [address] [place] [phone] 11/15/2023 Thiago Sanchez Mixed hyperlipidemia E78.2 ; Obesity (BMI 30.0-34.9) E66.9 ; Former smoker Z87.891 ; Benign prostatic hyperplasia with lower urinary tract symptoms N40.1 and Head and neck cancer C76.0 Thiago Sanchez III, MD [address] [place] [address] [address] [place] [phone] 05/16/2024 Thiago Sanchez Assessments Encounter Date Diagnosis (ICD Code) Assessment Notes Treat ment Notes Treatment Clinical Notes 11/15/2023 Obesity (BMI 30.0-34.9) (ICD-10 - E66.9) His body mass index is 32. His appetite is good. There is no sign of reecurrent oral cancer. We discussed diet and nutrittion. We made a plan to lose weight at a rate of one half of a pound per week. 11/15/2023 Mixed hyperlipidemia (ICD-10 - E78.2) His lipid profile is in the target rangeWith a slightly elevated triglyceride level. No change in his regimen was needed today.We discussed his diet today. 11/15/2023 Former smoker (ICD-1 0 - Z87.891) [...] of a new primary. Plan Of Treatment Pending Test Test Name Order Date PROFILE, FASTING (COMPREHENSIVE METABOLI C) 10/21/2019 PROFILE, FASTING (COMPREHENSIVE METABOLI C) 01/04/2022 PROFILE, FASTING (COMPREHENSIVE METABOLI C) 03/12/2019 PROFILE, FASTING (COMPREHENSIVE METABOLI C) 09/07/2020 PROFILE, FASTING (COMPREHENSIVE METABOLI C) 11/04/2018 PROFILE, FASTING (COMPREHENSIVE METABOLI C) 07/11/2023 PROFILE, FASTING (COMPREHENSIVE METABOLI C) 11/08/2021 PROFILE, FASTING (COMPREHENSIVE METABOLI C) 05/04/2020 PROFILE, FASTING (COMPREHENSIVE METABOLI C) 11/13/2022 PROFILE, FASTING (COMPREHENSIVE METABOLI C) 07/07/2022 PROFILE, FASTING (COMPREHENSIVE METABOLI C) 02/13/2023 LIPID PANEL 07/07/2022 LIPID PANEL 02/13/2023 LIPID PANEL 10/21/2019 LIPID PANEL 03/12/2019 LIPID PANEL 09/07/2020 LIPID PANEL 11/04/2018 LIPID PANEL 11/08/2021 LIPID PANEL 05/04/2020 LIPID PANEL 11/13/2022 FREE T4 (FT4) 11/13/2022 TSH (THYROID STIMULATING HORMONE) 2023 TSH (THYROID STIMULATING HORMONE) 2022 PSA, TOTAL 07/07/2022 PSA, TOTAL 11/13/2022 PSA, TOTAL 07/11/2023 PSA, TOTAL 03/12/2019 PSA, TOTAL 09/07/2020 PSA, TOTAL 11/04/2018 PSA, TOTAL 11/08/2021 CBC w DIFF 05/04/2020 CBC w DIFF 11/08/2021 CBC w DIFF 02/13/2023 CBC w DIFF 07/07/2022 CBC w DIFF 01/04/2022 CBC w DIFF 10/21/2019 CBC w DIFF 11/13/2022 CBC w DIFF 03/12/2019 CBC w DIFF 09/07/2020 CBC w DIFF 11/04/2018 ROUTINE CULTURE 11/04/2018 CT NECK WITH CONTRAST 04/15/2021 XR CHEST 2 VIEW PA & LAT 04/25/2023 XR WRIST RT 06/08/2020 VITAMIN D 25-OH TOTAL 09/07/2020 VITAMIN D 25-OH TOTAL 07/07/2022 CBC WITH AUTO DIFF 07/11/2023 Lipid Panel 07/11/2023 Free T4 (Free Thyroxine) 11/15/2023 CT head/brain w con 01/04/2022 US biopsy lymph node 05/18/2021 Next Appt Details Provider Name:Thiago Sanchez, 11/17/2024 10:00:00 AM, [address] [place] [address] , [address], [place], [address], Insurance Providers Payer Name Payer Address Payer Phone Subscriber Number Group Number Insured Name Patient Relationship to Insured Coverage Start Date Coverage End Date MEDICARE NGS [address] [place] [phone] [id number] Erich Corcoran Self - patient is the insured 3 Medical (General) History Medical History History ICD Code Hyperlipidemia E78.5 left lower quadrant abdominal hernia wit h reconstruction March 2018 bilateral adrenal masses, 1.7x2.9, 2.7x2 .9 small right inguinal hernia basal cell carcinoma of face, excised former smoker obesity diverticulitis requiring lef t lower quadrant surgery leaving incisional hernia 2001 appendectomy head and neck cancer Hypothyroid Surgical History Surgery Date(Month/Year) [facility] 06/2002 colonoscopy, Dr. 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
--- OUTSIDE RECORDS SUMMARY | 2024-10-10 12:25 | XMS_ITS ---
Author Organization Thiago Sanchez III, MD Address [address] [place] [facility] [address] Care Team Providers Care Manager Drug Name Role Phone Thiago Sanchez Primary Care Provider Medications Medication SIG (Take, Route, Fr equency, Duration) Notes Start Date End Date Status Simvastatin 20 MG 1 tablet in the even ing Orally Once a day for 90 days 05/16/2024 Active Social History Sex Assigned At : Social History Observation Description Sex Assigned At Male Encounters Encounter Location Date Provider Diagnosis Thiago Sanchez III, MD [address] [place] [address] [place] [address] 05/16/2024 Thiago Sanchez Plan Of Treatment Medication Medication Name Sig Start Date Stop Date Notes Simvastatin 20 MG 1 tablet in the even ing Orally Once a day for 90 days 05/16/2024 Next Appt Details Provider Name:Thiago Sanchez, 11/17/2024 10:00:00 AM, [address] [place] [address] [place], [address], Progress Notes * Marisel MEREDITHnDOB: [birth year] (63 yo M)Acc No.[id number]:05/16/2024 Patient:?Erich MEREDITH :1960???Age:63 Y???Sex:Male Address:[address] [place] [address], [phone] * Refills? Start Simvastatin Tablet, 20 MG, Orally, 90 Tablet, 1 tablet in the evening, Once a day, 90 days, Refills=3 * true * Date:? Generated for Tuyet miller/Susan/Chuck on:?10/10/2024 12:25 PM EST
--- OUTSIDE RECORDS SUMMARY | 2024-10-10 12:25 | XMS_ITS | Clinical Summary ---
Author Organization [facility] it Address [id number] [place] [address] Care Team Providers Care Actuarial Technician Name Role Phone Calvin Colbert MD Primary Care Provider [phone] Surgical History Surgery Date Site/Laterality Comments APPENDECTOMY 02/1987 PROCEDURE: HISTORICAL APPENDECTOMY HERNIA REPAIR PROCEDURE: HISTORICAL HERNIA REPAIR/ING; COMMENT: with mesh [facility] OTHER SURGICAL HISTORY 04/2017 PROCEDURE: MA EXCISION MALIGNANT LESION F/E/E/N/L 0.6-1.0 CM; COMMENT: basal OTHER SURGICAL HISTORY 03/05/2002 PROCEDURE: MA COLECTOMY PARTIAL W/ANASTOMOSIS; COMMENT: sigmoid colon d/t acute diverticulitis with abscess Medical History Medical History Date Comments Hyperlipidemia DX:Hyperlipidemi a Anxiety and depression DX:Anxiet y and depression History of SCC (squamous arabella l carcinoma) of skin 02/12/2018 DX:History of SCC (squamous cell carcinoma) of skin; COMMENT: 04/2017 Right cheek - Dr Yadav History of basal cell carcinoma 02/12/2018 DX:History of basal cell carcinoma; COMMENT: 04/2017 Right cheek - Dr Yadav Diverticulosis 02/12/2018 DX:Diverticulosi s; COMMENT: Diverticulitis 2001 resection sigmoid colon d/t acute diverticulitis with abscess GERD (gastroesophageal reflu x disease) 02/12/2018 DX:GERD (gastroesophageal re flux disease); COMMENT: H/o Peptic Ulcer Disease History of substance abuse (CMS/HCC) 02/12/2018 DX:History of substance abuse (HCC); COMMENT: Excessive alcohol intake Carpal tunnel syndrome 02/12/2018 DX:Carpal tunnel syndrome; COMMENT: Right wrist Pterygium 02/12/2018 DX:Pterygium Hernia cerebri (CMS/HCC) DX:Ray ia cerebri (HCC) Family History Medical History Relation Name Comments COPD Brother 1 Melanoma Brother 2 Seizures Diabetes Father CAD, Hypertensi on,Hypercholesterolemia, PVD, Diabetes Father's side Uncle, Emphyse ma Rheum arthritis Mother Crohn's Disease,Diverticulitis,Asthma,Atrial Fibrillation,Murmur Other cancer Mother's side Aunt Emphysema Paternal Grandfather Alcohol/Drug Sister AIDS Relation Name Status Comments Brother 1 Alive Brother 2 Alive Father Father's side Mother Alive Mother's side Paternal Grandfather Sister Social History Tobacco Use Types Packs/Day Years Used Date Smoking Tobacco: Former Cigarettes 2 15 0 08/20/1999 - 08/20/2014 Smokeless Tobacco: Never Alcohol Use Standard Drinks/Week Comments Yes 0 (1 standard drink = 0.6 oz pur e alcohol) Sex and Gender Information Value Date Recorded Sex Assigned at Not on file Legal Sex Male 10:07 AM EST Gender Identity Not on file Sexual Orientation Not on file Obstetrics History Plan of Treatment Health Maintenance Due Date Last Done Comments Pneumococcal Vaccine: 50+ Years (1 of 1 - PCV) 2008 Zoster Vaccines (1 of 2) 2008 COVID-19 Vaccine ( - 2023-2 5 season) 2024 Influenza Vaccine (#1) 2024 8, 05/30/2017 DTaP,Tdap,and Td Vaccines (2 - Td or Tdap) 05/30/2027 05/30/2017 RSV Immunization Patients 60 + Years Old (1 - 1-dose 75+ series) 2033 HIB Vaccines Aged Out No longer eligi ble based on patient's age to complete this topic HPV Vaccines Aged Out No longer eligi ble based on patient's age to complete this topic Hepatitis A Vaccines Aged Out No long er eligible based on patient's age to complete this topic Hepatitis B Vaccines Aged Out No long er eligible based on patient's age to complete this topic IPV Vaccines Aged Out No longer eligi ble based on patient's age to complete this topic MMR Vaccines Aged Out No longer eligi ble based on patient's age to complete this topic Meningococcal ACWY Vaccine Aged Out N o longer eligible based on patient's age to complete this topic Meningococcal B Vacine Aged Out No lo nger eligible based on patient's age to complete this topic RSV Immunization Patients Under 20 months Aged Out No longer eligible b ased on patient's age to complete this topic Varicella Vaccines Aged Out No longer eligible based on patient's age to complete this topic Care Teams Actuarial Technician Relationship Specialty Start Date End Date Calvin Colbert MD [address] [place] [address] PCP - General Internal Medicine 01/07/18
== END 2024-10-10 11:19 | disposition home or self-care (01) ==
LOC: HO.US 11:18
PROVIDERS: PCP Internal Medicine Medical Oncology; Visit Provider Urology
DX: R39.12 Poor urinary stream (principal); N32.0 Bladder-neck obstruction
CPT/HCPCS: 76857

== ENCOUNTER → 2024-10-10 11:21 | Outpatient (BNV) | payer MEDICARE, SELFPAY | PROVIDERS: PCP Internal Medicine Medical Oncology; Visit Provider Radiology Diagnostic Radiology | DX: R33.9 Retention of urine, unspecified (principal); N32.3 Diverticulum of bladder | CPT/HCPCS: 76857 ==

== ENCOUNTER 2024-10-17 10:42 | Outpatient (AMB) | payer MEDICARE, SELFPAY ==
--- NOTE | 2024-10-17 10:47 | MHC.OFFVIS ---
Intake Visit Reasons: 1Y Bladder US/PVR(set) Intake Note: Pt presents to the office today for a 1 year follow up bladder US and PVR. PVR:18mL Allergies levofloxacin [Levaquin] Allergy (Severe, Verified 10/17/24 10:47) Itching bee sting Allergy (Severe, Uncoded 10/17/24 10:47) Swelling Ceftin Allergy (Severe, Uncoded 10/17/24 10:47) Itching HPI Comments Details: Erich Mauro is a very pleasant male. He is a patient of Dr. Sanchez. He seen for following urologic conditions - lower urinary tract symptoms Today's PVR 20 cc Doing well emptying bladder Very happy with current voiding performance Prior TURP Significant improved stream 2 bladder diverticular at time Initial PVR 160 Discussed diverticulectomy At this stage will continue to follow as long as residuals remain within reasonable range Urinary Symptoms Review - Patient reports no issues with urinary function. - Describes others needing frequent bathroom visits. - Current Post-Void Residual remains under 1 ounce. - Initial Prostatic Volume Assessment was 160 cc. Lower Urinary Tract Symptoms: At [facility] laser of prostate with incision and ablation of diverticula Current visit is for further evaluation of, lower urinary tract symptoms, predominate obstructive symptoms. Current treatment includes no medications - 07/11 GL prostatectomy Prostate Symptom Score 8/19 , Moderate (9-19), Bother 4. Symptoms include 8/19 Moderate , incomplete emptying, nocturia (>2), and are progressing. Results from testing include renal/bladder us Yes date 05/02/2019 PVR 200 Two 4 cm bladder diverticulum seen on ultrasound prostate size 25 PSA 05/08 0.5, 02/09 0.4 Prostate volume 30-50gm. 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 Basal cell carcinoma BPH (benign prostatic hyperplasia) Bladder diverticulum Bladder outlet obstruction Incomplete emptying of bladder Weak urinary stream Surgical History Hx of tonsillectomy H/O umbilical hernia repair History of appendectomy History of bowel resection History of hernia repair Family History Father Myocardial infarct Diabetes mellitus HTN (hypertension) Mother Asthma Acute Crohn's disease Arthritis Social History Patient Tobacco Use Status: Former Tobacco user Tobacco use type: Cigarette Review of Systems Const Denies chills and Denies fever(s) Card Reports no additional complaints and Denies syncope Resp Denies cough GI Denies abdominal pain and Denies heartburn Reports as per HPI and Denies change in libido Neuro Denies syncope Psych Denies change in libido Endo Denies change in libido Physical Exam Const General: cooperative, healthy appearing, comfortable and no acute distress Orientation/consciousness: patient oriented x3 HEENT Face and sinus: Yes normal facial exam Mouth: moist mucous membranes Neck Neck: Yes normal visual inspection, Yes full ROM and Yes trachea midline Chest Chest palpation & inspection: normal inspection of the chest Resp Effort & Inspection: normal respiratory effort, able to speak in complete sentences and no respiratory distress GI Inspection: Yes normal to inspection Back/Spine/Pelvis Cervical Spine: normal cervical lordosis Thoracic/Lumbar Spine: thoracic and lumbar spine normal to inspection Skin General skin exam: no rashes or lesions noted Neuro General: patient oriented x3, gait normal, tone normal and moves all extremities Extrem General: Yes normal to inspection and Yes capillary refill normal Office Procedures Post Void Residual Post Residual Void Post Void Residual (PVR): 18 00814-Iftr Void Residual by ultrasound Assessment & Plan Assessment & Plan (1) Bladder diverticulum: Code(s): N32.3 - Diverticulum of bladder Category: Medical (2) BPH (benign prostatic hyperplasia): Code(s): N40.0 - Benign prostatic hyperplasia without lower urinary tract symptoms Category: Medical Plan Plan Continue monitoring urinary function with annual follow-up. Maintain regular PSA and ultrasound assessments. The patient's post-void residual remains satisfactory. No complications or cancer recurrence observed. Patient advised to report any emerging symptoms. Discussion Notes I discussed with the patient the current status of his urinary health following prior surgical interventions. The patient is reported to have stable and satisfactory urinary function, confirmed by post-void residuals and imaging results. I reiterated the importance of annual follow-ups and PSA tests. Benefits of prior procedures have been sustained, with patient acknowledgment of positive outcomes. Risks of recurrent symptoms or complications were reviewed, though they presently seem minimal. Patient Instructions - Continue regular follow-up visits annually. - Undergo routine PSA testing and ultrasound scanning. - Report any new or worsening urinary symptoms immediately. - Maintain awareness of the procedure success and potential symptoms of recurrence. Orders: Orders AMB Post Void Residual by ultrasound Today N40.0 - Benign prostatic hyperplasia without lower urinary tract symptoms Patient Instructions: This note is constructed using voice recognition software. While every effort has been made to ensure accuracy registration rep errors may have been included. Imaging studies, laboratory and physical exam results were discussed and reviewed in detail. No major barriers to patient understanding were identified. An opportunity to ask questions regarding the treatment plan was provided. All questions were answered. The patient expressed understanding and agreement with the above treatment plan. The patient is aware they should contact our office by phone for worsening of their current condition or the appearance of new urologic symptoms. Compliance is encouraged with any medications and followup testing that is ordered. It is a privilege to participate in the urologic care of your patient. If you have any questions or concerns regarding treatment for the above conditions, or other urologic issues, please do not hesitate to contact me. The office telephone contact is [phone]. Sincerely, Dr Ady Patton MD, [facility] - Urology Compassionate Specialist Care for the Genitourinary System Coding Level of Care Code Est Pt Level 4 (25801) Complex EM visit Add On G2211 Diagnoses Bladder diverticulum N32.3 BPH (benign prostatic hyperplasia) N40.0 CPT Codes Post Residual Void - PVR CPT Code: 83922-Dzxe Void Residual by ultrasound ([id number])
--- OUTSIDE RECORDS SUMMARY | 2024-10-17 12:14 | XMS_ITS ---
Author Organization Thiaog Sanchez III, MD Address [address] [place] [place] [address] Care Team Providers Care Rn Procedures Name Role Phone Thiago Sanchez Primary Care Provider Allergies Allergen (clinical drug ingredient) Drug/Non Drug [...] Date Provider Diagnosis Thiago Sanchez III, MD [address] [place] [address] [place] [address] 11/15/2023 Thiago Sanchez Mixed hyperlipidemia E78.2 ; [...] OV Provider Name:Thiago Sanchez, 11/17/2024 10:00:00 AM, [address] [place] [address] [place], [address], Progress Notes * Marisel MAUROnDOB: [birth year] (63 yo M)Acc No.[id number]:11/15/2023 Progress Notes Patient:?Erich Mauro Provider:?Thiago Sanchez MD :1960???Age:63 Y???Sex:Male Praful e:11/15/2023 Address:[address] [place], [place] [phone] Subjective: * Chief Complaints: * ???Annual Exam [...] for diverticulitis 2002appendectomy 1980colonoscopy, Dr. Thiago Colunga, [facility], next due 2021 2011TURP, [facility] 06/2002 * Hospitalization/Major Diagno stic Procedure:?Excision [...] point) ?Points?3 ?Interpretation?Negative ???He was born and [place], [place]. He is single with no children. [...] mg/dL) 45 (Ref Range: mg/dL) * Lab:[facility] * Order Date 10/30/2023 [...] * ?BLD Negative Negative - * Procedure Codes:?18195 URINE -NO MICRO * Preventive Medicine:? ??Counseling:?Care [...] * Provider:?Thiago Sanchez MD Date:?10/19 Generated for Boi angela/Susan/eTransmitting on:?10/17/2024 12:14 PM EST History and Physical Notes * [...]
--- OUTSIDE RECORDS SUMMARY | 2024-10-17 12:14 | XMS_ITS | Patient Health Record ---
Author Organization Thiago Sanchez III, MD Address [address] [place] [address] Care Team Providers Care Concrete Tile Machine Operator Name Role Phone Thiago Sanchez Primary Care Provider [phone] Allergies Allergen (clinical drug ingredient) Drug/Non Drug [...] ff Reviewed date:11/15/2023 09:26:15 AM Interpretation: Performing Lab:[facility], [address] [place] [address] Notes/Report: White Blood Count 5.0 4.8-10.8 X10*3/uL [...] NRBC Abs Auto 0.000 0.0-0.012 X10*3/uL Comprehensive [place]. Panel Fa st Reviewed date:11/15/2023 09:26:15 AM Interpretation: Performing Lab:[facility], [address] [place] [address] Notes/Report: Sodium 141 135-145 mmol/L Potassium 4.9 3.3-5.1 mmol/L Chloride 107 96-108 mmol/L Carbon Dioxide 29 22-29 mmol/L Anion Gap 10 12-20 Blood Urea Nitrogen 13 9-16 mg/dL Creatinine 0.99 0.5-1.4 mg/dL Estimated Glomerular Filt Rate > 60 NOTE: For -Moroccan individuals, multiply the result by 1.210. Chronic [...] Panel Reviewed date:11/15/2023 09:26:15 AM Interpretation: Performing Lab:[facility], [address] [place] [address] Notes/Report: Triglycerides 151 <150 mg/dL Desirable Triglyceride: [...] Antigen Reviewed date:11/15/2023 09:26:15 AM Interpretation: Performing Lab:[facility], [address] [place] [address] Notes/Report: Prostate Specific Antigen 0.41 <0.05-4.0 ng/mL PSA methodology: [employer] Al[employer] i Chemiluminescent Microparticle Immunoassay (CMIA) Free T4 (Free Thyroxine) Reviewed date:01/28/2024 04:24:00 AM Interpretation: Performing Lab:[address] [address] Notes/Report: Free T4 (Free Thyroxine) 0.82 0.71-1.85 ng/dL Thyroid Stimulating Hormone Reviewed date:01/28/2024 04:24:00 AM Interpretation: Performing Lab:[address] [address] Notes/Report: Thyroid Stimulating Hormone 2.98 0.32-4.0 uIU/mL Note: A sustained TSH level above 2.5 uIU/mL may warrant further investigation. TSH 3rd Generation ([employer]) US bladder (Not yet reviewed by provider) Interpretation: Performing Lab: Notes/Report: [address] [address] Ultrasound Report Signed Patient: Erich Mauro V MR#: [id number] : 1960 Acct:[id number] Age/Sex: 64 / M ADM Date: 10/10/24 Loc: HO.US Attending Dr: Ady Patton MD Ordering Physician: Ady Patton MD Date of Service: 10/10/24 Procedure(s): US bladder Accession Number(s): [id number] cc: Ady Patton MD; Thigao Sanchez MD EXAMINATION: US PELVIS LIMITED (BLADDER) CLINICAL INFORMATION: Poor urination strain. COMPARISON: April 25, 2019. TECHNIQUE: Real-time imaging of the bladder. FINDINGS: BLADDER: Fluid-filled with a 3 cm saccular anechoic abnormality in the posterior right wall. Bilateral ureteral jets are demonstrated. Prevoid bladder volume is 158 mL. Postvoid bladder volume is 69 mL. Status post TURP US/US bladder IMPRESSION: 69 cc urine retention in a post void image. 3 cm diverticulum, posterior right bladder.. Electronically signed by: Nathaniel Alexis MD 10/13/2024 08:59 AM EST Dictated By: Nathaniel Royal MD Signed By: <Electronically signed by Nathaniel Garcia MD in OV> 10/13/24 0859 DD/ 1131 TD/TT: 10/10/24 1147 Physician Coder: [address] [address] Ultrasound Report Signed Patient: Erich Mauro V MR#: [id number] : 1960 Acct:[id number] Age/Sex: 64 / M ADM Date: 10/10/24 Loc: HO.US Attending Dr: Trupti Tierney MD Ordering Physician: Ady Patton MD Date of Service: 10/10/24 Procedure(s): US bladder Accession Number(s): [id number] cc: Ady Patton MD; Thiago Sanchez MD EXAMINATION: US PELVIS LIMITED (BLADDER) CLINICAL INFORMATION: Poor urination strain. COMPARISON: April 25, 2019. TECHNIQUE: Real-time imaging of the bladder. FINDINGS: BLADDER: Fluid-fille d with a 3 cm saccular anechoic abnormality in the posterior right wall . Bilateral ureteral jets are demonstrated. Prevoid bladder volume is 15 8 mL. Postvoid bladder volume is 69 mL. Status post TURP US/US bladder IMPRESSION: 69 cc urine retentio n in a post void image. 3 cm diverticulum, posterior right bladder.. Electronically mark d by: Nathaniel Alexis MD 10/13/2024 08:59 AM EST Dictated By: Nathaniel Shah MD Signed By: <Electronically signed by Nathaniel Garcia MD in OV> 10/13/24 0859 DD/ 1131 TD/TT: 10/10/24 1147 Physician Coder: Reason For Referral No Information Medications Medication [...] Problem Status W/U Status Risk Notes Problem 4553569 Former smoker (Z87.891) Active confirmed He is highly motivated not to smoke. We discussed a plan to prevent relapse in times of stress and illness. Problem 671971154550981 Obesity (BMI 30.0-34.9) (E66.9) Active confirmed His body mass index is 32. His appetite is good. There is no sign of reecurrent oral cancer. We discussed diet and nutrittion. We made a plan to lose weight at a rate of one half of a pound per week. Problem 292440817 Mixed hyperlipidemia (E78.2) Active confirmed His lipid profile is in the target rangeWith a slightly elevated triglyceride level. No change in his regimen was needed today.We discussed his diet today. Problem 041700550 Head and neck cancer (C76.0) Active confirmed There was no sign of recurrent disease on today's examination. There was no sign of a new primary. Problem 266888080695269 Benign prostatic hyperplasia with lower urinary tract symptoms (N40.1) Active confirmed He rises from sleep once or twice a night depending upon fluid intake. We discussed lifestyle modification as a way to reduce nocturnal urination. Problem 361600133 Incisional hernia, without obstruction or gangrene (K43.2) Active confirmed He is free of symptoms at the site of the scar. Problem 64110804349250353 Mass of both adrenal glands (E27.9) Active [...] Date Provider Diagnosis Thiago Sanchez III, MD [address] [place] [address] [place] [address] 11/15/2023 Thiago Sanchez Mixed hyperlipidemia E78.2 ; Obesity (BMI 30.0-34.9) E66.9 ; Former smoker Z87.891 ; Benign prostatic hyperplasia with lower urinary tract symptoms N40.1 and Head and neck cancer C76.0 Thiago Sanchez III, MD [address] [place] [address] [place] [address] 05/16/2024 Thiago Sanchez Assessments Encounter Date Diagnosis [...] 11/15/2023 CT head/brain w con 01/04/2022 US bladder 10/10/2024 US biopsy lymph node 05/18/2021 Next Appt Details Provider Name:Thiago Sanchez, 11/17/2024 10:00:00 AM, [address] [place] [address] , [address], [place], [address], Insurance Providers Payer Name Payer Address Payer Phone Subscriber Number Group Number Insured Name Patient Relationship to Insured Coverage Start Date Coverage End Date MEDICARE NGS [address] [place] [address] [id number] Erich Corcoran Self - patient is the [...] cancer Hypothyroid Surgical History Surgery Date(Month/Year) [facility] 06/2002 colonoscopy, Dr. 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
--- OUTSIDE RECORDS SUMMARY | 2024-10-17 12:14 | XMS_ITS | Clinical Summary ---
Author Organization [employer] [facility] it Address [address] [place] [address] Care Team Providers Care Patient Consumer Marketer Name Role Phone Calvin Colbert MD Primary Care Provider [phone] Surgical History Surgery Date Site/Laterality Comments APPENDECTOMY 02/1987 PROCEDURE: HISTORICAL APPENDECTOMY HERNIA REPAIR PROCEDURE: HISTORICAL HERNIA REPAIR/ING; COMMENT: with mesh [facility] OTHER SURGICAL HISTORY 04/2017 PROCEDURE: SD EXCISION MALIGNANT LESION F/E/E/N/L 0.6-1.0 CM; COMMENT: basal OTHER SURGICAL HISTORY 03/05/2002 PROCEDURE: SD COLECTOMY PARTIAL W/ANASTOMOSIS; COMMENT: sigmoid colon d/t [...] age to complete this topic Care Teams Patient Consumer Marketer Relationship Specialty Start Date End Date Calvin Colbert MD [address] [place] [address] PCP - General Internal Medicine 01/07/18
--- OUTSIDE RECORDS SUMMARY | 2024-10-17 12:14 | XMS_ITS ---
Author Organization Thiago Sanchez III, MD Address [address] [place] [address] [address] [facility] [place] [address] Care Team Providers Care Software Configuration Engineer Name Role Phone Thiago Sanchez Primary Care Provider [phone] REASON FOR VISIT Follow up Social History Sex Assigned At : Social History Observation Description Sex Assigned At Male Encounters Encounter Location Date Provider Diagnosis Thiago Sanchez III, MD [address] [place] [address] [place] [address] 12/17/2023 Thiago Sanchez Plan Of Treatment Next Appt Details Provider Name:Thiago Sanchez, 11/17/2024 10:00:00 AM, [address] [place] [address] [place], [address], Progress Notes * Marisel MEREDITHnDOB: [birth year] (64 yo M)Acc No.[id number]:12/17/2023 Progress Notes Patient:?Erich MEREDITH Provider:?Thiago Sanchez MD :1960???Age:63 Y???Sex:Male Praful e:12/17/2023 Address:[address] [place] [address] [id number] Subjective: * Chief Complaints: * ???1. Follow up. * Medical History:? Objective: * Vitals:? Assessment: Plan: * Treatment: * Images: * The named appointment provid er may or may not be the originator of this progress note, and it is not deemed complete until electronically signed by the appointment provider. Sign off status: Pending * Provider:?Thiago Sanchez MD Date:?11/19 Generated for Tuyet miller/Susan/Chuck on:?10/17/2024 12:13 PM EST
--- OUTSIDE RECORDS SUMMARY | 2024-10-17 12:14 | XMS_ITS ---
Author Organization Thiago Sanchez III, MD Address [address] [place] [address] Care Team Providers Care Drill Grinder Name Role Phone Thiago Sanchez Primary Care [...] Date Provider Diagnosis Thiago Sanchez III, MD [address] [place] [address] [place] [address] 05/16/2024 Thiago Sanchez Plan Of Treatment Medication Medication Name Sig Start Date Stop Date Notes Simvastatin 20 MG 1 tablet in the even ing Orally Once a day for 90 days 05/16/2024 Next Appt Details Provider Name:Thiago Sanchez, 11/17/2024 10:00:00 AM, [address] [place] [address] [place], [address], Progress Notes * Marisel MEREDITHnDOB: [birth year] (63 yo M)Acc No.[id number]:05/16/2024 Patient:?Erich MEREDITH :1960???Age:63 Y???Sex:Male Address:[address] [place] [address], [address] * Refills? Start Simvastatin Tablet, 20 MG, Orally, 90 Tablet, 1 tablet in the evening, Once a day, 90 days, Refills=3 * true * Date:? Generated for Tuyet miller/Susan/Chuck on:?10/17/2024 12:14 PM EST
== END 2024-10-17 11:11 | disposition home or self-care (01) ==
PROVIDERS: PCP Internal Medicine Medical Oncology; Visit Provider Urology
DX: N32.3 Diverticulum of bladder (principal); N40.0 Benign prostatic hyperplasia without lower urinary tract symptoms
CPT/HCPCS: 99214; G2211

== ENCOUNTER → 2024-10-17 10:42 | Outpatient (BNVA) | payer MEDICARE, SELFPAY | PROVIDERS: PCP Internal Medicine Medical Oncology; Visit Provider Urology | DX: N32.3 Diverticulum of bladder (principal); N40.0 Benign prostatic hyperplasia without lower urinary tract symptoms | CPT/HCPCS: 51798; 99212 ==

== ENCOUNTER 2025-02-19 07:56 | Outpatient (REF) | payer MEDICARE, SELFPAY ==
--- OUTSIDE RECORDS SUMMARY | 2024-10-27 12:00 | XMS_ITS ---
Author Organization Thiago Sanchez III, MD Address [address] [place] [address] Care Team Providers Care Shank Sorter Name Role Phone Thiago Sanchez Primary Care Provider Allergies Allergen (clinical drug ingredient) Drug/Non Drug Allergy documented on EMR Reaction Allergy Type Onset Date Status Bee Sting Unknown Allergy Active Levaquin Unknown Drug Allergy Active Ceftin Unknown Drug Allergy Active REASON FOR VISIT Hypertension Medications Medication SIG (Take, Route, Frequency, Duration) Notes Start Date End Date Status Levothyroxine Sodium 25 MCG TAKE 1 TABLE T BY MOUTH EVERY DAY IN THE MORNING ON EMPTY STOMACH FOR 30 DAYS Active Lisinopril 10 MG 1 tablet Orally Once a day for 30 days 10/27/2024 Active PARoxetine HCl 10 MG TAKE 1 TABLET daily Orally Once a day Active Cevimeline HCl 30 MG TAKE 1 CAPSULE BY M OUTH THREE TIMES A DAY FOR 30 DAYS 90 Active Simvastatin 20 MG 1 tablet in the even ing Orally Once a day 05/16/2024 Active Simvastatin 20 MG TAKE 1 TABLET BY RUBIN TH EVERY EVENING ORALLY ONCE A DAY 90 DAYS Active Sodium Fluoride 5000 PPM 1.1 % USE DIRECTED ON BOX Dental Active Fish Oil Active Multivitamin Active Social History Tobacco Use: Social History Observation Description Date Details (start date - stop date) Former Smoker NA - NA Sex Assigned At : Social History Observation Description Sex Assigned At Male Tobacco Use/Smoking Question Answer Notes Patient is a former smoker How long has it been since you last smoked? 1-5 years Additional Findings: Tobacco Non-User Ex-cigaret te smoker Problems Problem Type SNOMED Code ICD Code Onset Dates Problem Status W/U Status Risk Notes Problem [id number] Essential (primary) hypertension (I10) Active confirmed His blood pressures in the normal range and no change in his regimen was necessary. Vital Signs Temperature 98.1 degrees Fahrenheit 10/28/19 25 Blood pressure systolic 143 mm Hg 10/28/19 25 Blood pressure diastolic 98 mm Hg 025 Heart Rate 75 /min 10/27/2024 Height 66 in 10/27/2024 Weight 212 lbs 10/27/2024 BMI 34.21 kg/m2 10/27/2024 Encounters Encounter Location Date Provider Diagnosis Thiago Sanchez III, MD [address] [place] [address] [place] [address] 10/27/2024 Thiago Sanchez Mixed hyperlipidemia E78.2 ; Essential (primary) hypertension I10 ; Former smoker Z87.891 ; Benign prostatic hyperplasia with lower urinary tract symptoms N40.1 ; Head and neck cancer C76.0 and Obesity (BMI 30.0-34.9) E66.9 Assessments Encounter Date Diagnosis (ICD Code) Assessment Notes Treat ment Notes Treatment Clinical Notes 10/27/2024 Mixed hyperlipidemia (ICD-10 - E78.2) His lipid profile is in the target rangeWith a slightly elevated triglyceride level. No change in his regimen was needed today.We discussed his diet today. 10/27/2024 Essential (primary) hypertension (ICD-10 - I10) He was begun on 10 mg of lisinopril daily. 10/27/2024 Former smoker (ICD-1 0 - Z87.891) He is highly motivated not to smoke. We discussed a plan to prevent relapse in times of stress and illness. 10/27/2024 Benign prostatic hyperplasia with lower urinary tract symptoms (ICD-10 - N40.1) He rises from sleep once or twice a night depending upon fluid intake. We discussed lifestyle modification as a way to reduce nocturnal urination. 10/27/2024 Head and neck cancer (ICD-10 - C76.0) There was no sign of recurrent disease on today's examination. There was no sign of a new primary. 10/27/2024 Obesity (BMI 30.0-34.9) (ICD-10 - E66.9) His body mass index is 32. His appetite is good. There is no sign of reecurrent oral cancer. We discussed diet and nutrittion. We made a plan to lose weight at a rate of one half of a pound per week. Plan Of Treatment Medication Medication Name Sig Start Date Stop Date Notes Levothyroxine Sodium 25 MCG TAKE 1 TABLE T BY MOUTH EVERY DAY IN THE MORNING ON EMPTY STOMACH FOR 30 DAYS Lisinopril 10 MG 1 tablet Orally Once a day for 30 days 10/27/2024 PARoxetine HCl 10 MG TAKE 1 TABLET daily Orally Once a day Cevimeline HCl 30 MG TAKE 1 CAPSULE BY M OUT THREE TIMES A DAY FOR 30 DAYS 90 Simvastatin 20 MG 1 tablet in the even ing Orally Once a day 05/16/2024 Simvastatin 20 MG TAKE 1 TABLET BY RUBIN TH EVERY EVENING ORALLY ONCE A DAY 90 DAYS Sodium Fluoride 5000 PPM 1.1 % USE DI RECTED ON BOX Dental Fish Oil Multivitamin Next Appt Details Follow Up: as scheduled, Naty son: annual exam no tests Provider Name:Thiago Sanchez, 06/15/2025 10:00:00 AM, [address] [place] [address] [address], [place], [phone], Provider Name:Thiago Sanchez, 11/19/2025 10:00:00 AM, [address] [place] [address] [address], [place], [phone], Progress Notes * Marisel MEREDITHnDOB: [birth year] (64 yo M)Acc No.[id number]:10/27/2024 Progress Notes Patient: Zabrina Erich BENTLEY Provider: Maximiliano Sanchez MD :1960 A ge:64 Y S ex:Male Date:10/27/2024 Address:[address] [place] [id number] Subjective: * Chief Complaints: * H ypertension * HPI: C OVID-19 Screening: The visiting nurse recently found. His blood pressure at home to be quite elevated. He was instructed to come to the office for management.After lying supine for 10 min. His blood pressure was 143/98, This value was obtained upon repeat. His medications were adjusted and a followup visit was given to him. He is currently asymptomatic. Questions H ave you had any new onset fever, chills, cough, congestion, sore throat, shortness of breath, muscle aches? N o * ROS: G eneral/Constitutional: pain o nly normal aches and pains. C hills d enies.?Fatigue a dmits. F ever d enies. E NT: Decreased hearing d enies. R espiratory: Cough d enies. C ardiovascular: Chest pain with exertion d enies. D yspnea on exertion?denies. S hortness of breath d enies. G astrointestinal: Constipation o ccasional. D ecreased appetite d enies. D iarrhea d enies. H eartburn d enies. N ausea d enies. R ectal bleeding d enies. V omiting d enies. H ematology: bruising d enies. p etechiae d enies. S wollen glands n one have been noted. G enitourinary: Frequent urination o nce a night. M usculoskeletal: Muscle aches d enies. P ainful joints d enies. S ciatica d enies. W eakness d enies. S kin: Itching d enies. R pedro d enies. S kin lesion(s)?denies. N eurologic: Difficulty speaking d enies. D izziness d enies.?Headache d enies. L ow back pain d enies. P sychiatric: Depressed mood d enies. * Medical History: * Surgical History: e xcision basal cell carcinoma of face 2017reconstruction left lower quadrant abdominal recurrent hernia 03/2018dental extractions bowel resection for diverticulitis 2001appendectomy 1979colonoscopy, Dr. 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 M other: 86 yrs, Rheumatoid arthritis, atrial fibrillation, , Crohn's disease, asthma, diverticulitis, diagnosed with CVD. S iblings: , Oldest brother pulmonary embolism, seizures and melanoma, COPD, emphysema. Sister drug overdose and alcoholism, Liver failure, Aids, His sister has a history of mental illness and addiction and substance use disorder.. P atejajal Grand Father: , diagnosed with DM. P aternal Grand Mother: , diagnosed with DM. M aternal Grand Father: , diagnosed with CVD. M aternal Grand Mother: , diagnosed with CVD. 1 brother(s) - healthy. . He has no children. He is not aware of any other family history of substance use disorder, orientation or mental illness. * Social History: T obacco Use: T obacco Use/Smoking P atient is a f ormer smoker H ow long has it been since you last smoked??1-5 years A dditional Findings: Tobacco Non-User E x-cigarette smoker Cristy plata was born and [place], [place]. He is single with no children. 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 He has no toxic exposures. He wears glasses. No plugs at work. * Medications: T akingFish Oil Multivitamin Simvastatin 20 MG Tablet TAKE 1 TABLET BY MOUTH EVERY EVENING ORALLY ONCE A DAY 90 DAYS Sodium Fluoride 5000 PPM 1.1 % Paste USE DIRECTED ON BOX Dental Levothyroxine Sodium 25 MCG Tablet TAKE 1 TABLET BY MOUTH EVERY DAY IN THE MORNING ON EMPTY STOMACH FOR 30 DAYS Cevimeline HCl 30 MG Capsule TAKE 1 CAPSULE BY MOUTH THREE TIMES A DAY FOR 30 DAYS 90 Simvastatin 20 MG Tablet 1 tablet in the evening Orally Once a day PARoxetine HCl 10 MG Tablet TAKE 1 TABLET daily Orally Once a day Medication List reviewed and reconciled with the patientTaking Fish Oil Taking Multivitamin Taking Simvastatin 20 MG Tablet TAKE 1 TABLET BY MOUTH EVERY EVENING ORALLY ONCE A DAY 90 DAYS Taking Sodium Fluoride 5000 PPM 1.1 % Paste USE DIRECTED ON BOX Dental Taking Levothyroxine Sodium 25 MCG Tablet TAKE 1 TABLET BY MOUTH EVERY DAY IN THE MORNING ON EMPTY STOMACH FOR 30 DAYS Taking Cevimeline HCl 30 MG Capsule TAKE 1 CAPSULE BY MOUTH THREE TIMES A DAY FOR 30 DAYS 90 Taking Simvastatin 20 MG Tablet 1 tablet in the evening Orally Once a day Taking PARoxetine HCl 10 MG Tablet TAKE 1 TABLET daily Orally Once a day Medication List reviewed and reconciled with the patient * Allergies: C eftinLevaquinBee Stingno[Allergies Verified] Objective: * Vitals: H t: 66, Wt:212, BMI:34.21, BP:143/98, HR:75, Temp:98.1, Wt-k.16. * Examination: G eneral Examination: GENERAL APPEARANCE: p jackie, well nourished, well developed, in no acute distress, calm and relaxed, obese, man. HEAD: a traumatic, normocephalic. EYES: e dom, perrla, anicteric, conjugate. EARS: n ormal. NOSE: s eptum intact. ORAL CAVITY: M embranes are dry, no evidence for recurrent cancer. NECK/THYROID: n o jugular venous distention, no carotid bruit, thyroid normal, Surgical changes right neck after neck dissection, skin thickening, scar intact, no enlarged lymph nodes. LYMPH NODES: n o enlarged lymph nodes,spleen normal. SKIN: n o suspicious lesions, anicteric. HEART: n o clicks, gallops, murmurs, or rubs, regular rhythm, S1, S2 normal, no s3, or vascular bruits. LUNGS: c lear to auscultation . BREASTS: no masses palpable bilaterally. ABDOMEN: b owel sounds normal, no ascites, no organomegaly, no mass, centripital obesity. RECTAL EXAM: n ot examined. MUSCULOSKELETAL: e xtremities unremarkable, no clubbing, cyanosis or edema. PERIPHERAL PULSES: n ormal. NEUROLOGIC: a lert and oriented, cranial nerves 2-12 grossly intact, deep tendon reflexes 2+ symmetrical, motor strength normal upper and lower extremities, sensory exam intact. PSYCH: a lert, oriented. Assessment: * Assessment: 1. E ssential (primary) hypertension - I10 (Primary) N otes :He was begun on 10 mg of lisinopril daily. 2 . M ixed hyperlipidemia - E78.2 N otes :His lipid profile is in the target rangeWith a slightly elevated triglyceride level. No change in his regimen was needed today.We discussed his diet today. 3 . F ormer smoker - Z87.891 N otes :He is highly motivated not to smoke. We discussed a plan to prevent relapse in times of stress and illness. 4 . B enign prostatic hyperplasia with lower urinary tract symptoms - N40.1? Notes :He rises from sleep once or twice a night depending upon fluid intake. We discussed lifestyle modification as a way to reduce nocturnal urination. 5 . H ead and neck cancer - C76.0 N otes :There was no sign of recurrent disease on today's examination. There was no sign of a new primary. 6 . O besity (BMI 30.0-34.9) - E66.9 N otes :His body mass index is 32. His appetite is good. There is no sign of reecurrent oral cancer. We discussed diet and nutrittion. We made a plan to lose weight at a rate of one half of a pound per week. Plan: * Treatment: 2. O thers Continue Simvastatin Tablet, 20 MG, TAKE 1 TABLET BY MOUTH EVERY EVENING ORALLY ONCE A DAY 90 DAYS;?Continue Sodium Fluoride 5000 PPM Paste, 1.1 %, USE DIRECTED ON BOX, Dental; C ontinue Levothyroxine Sodium Tablet, 25 MCG, TAKE 1 TABLET BY MOUTH EVERY DAY IN THE MORNING ON EMPTY STOMACH FOR 30 DAYS; C ontinue Cevimeline HCl Capsule, 30 MG, TAKE 1 CAPSULE BY MOUTH THREE TIMES A DAY FOR 30 DAYS 90; C ontinue Simvastatin Tablet, 20 MG, 1 tablet in the evening, Orally, Once a day; C ontinue PARoxetine HCl Tablet, 10 MG, TAKE 1 TABLET daily, Orally, Once a day. * Procedure Codes: * Preventive Medicine: Counseling: C are goal follow-up plan: Counseling for abnormal BMI given Y es Above Normal BMI Follow-up D ietary management education, guidance, and counseling, Dietary needs education, Exercise promotion: strength training, Exercise promotion: stretching, Feeding regime, Giving encouragement to exercise, Lifestyle education regarding diet, Nutrition / feeding management, Nutrition therapy, Prescribed activity/exercise education, Prescribed diet education, Prescribed dietary intake, Special diet education, Weight monitoring , Intervention, Order not done: Medical or Other reason not done S moking/Tobacco Use Patient counseled on the dangers of tobacco use and urged to quit. 0 10/27/2024 * Follow Up: a s scheduled (Reason: annual exam no tests) * Images: * Sign off status: Completed true * Provider: Maximiliano Sanchez MD Date: 0 10/27/2024 Generated for Printi ng/Susan/eTransmitting on: 0 02/19/2025 07:59 AM EDT History and Physical Notes * HPI (History of Present Illness) Category Sub-Category Detail Notes COVID-19 Screening Questions Have you had any new onset fever, chills, cough, congestion, sore throat, shortness of breath, muscle aches?: No Examination Category Sub-Category Detail Notes General Examination GENERAL APPEARANCE: pleasant , well nourished, well developed, in no acute distress, calm and relaxed, obese, man HEAD: atraumatic, normocep halic EYES: eomi, perrla, anicte ashish, conjugate EARS: normal NOSE: septum intact NECK/THYROID: no jugular venous di stention, no carotid bruit, thyroid normal, Surgical changes right neck after neck dissection, skin thickening, scar intact, no enlarged lymph nodes HEART: no clicks, gallops, murmurs, or rubs, regular rhythm, S1, S2 normal, no s3, or vascular bruits LUNGS: clear to auscultatio n ABDOMEN: bowel sounds normal, no ascites, no organomegaly, no mass, centripital obesity NEUROLOGIC: alert and oriented, cranial nerves 2-12 grossly intact, deep tendon reflexes 2+ symmetrical, motor strength normal upper and lower extremities, sensory exam intact SKIN: no suspicious lesion s, anicteric PERIPHERAL PULSES: normal BREASTS: no masses palpable b ilaterally MUSCULOSKELETAL: extremities unremark able, no clubbing, cyanosis or edema LYMPH NODES: no enlarged lymph no elisa,spleen normal RECTAL EXAM: not examined PSYCH: alert, oriented ORAL CAVITY: Membranes are dry, n o evidence for recurrent cancer
--- OUTSIDE RECORDS SUMMARY | 2025-02-19 07:59 | XMS_ITS | Clinical Summary ---
Author Organization [facility] it Address [address] [place] [address] Care Team Providers Care Solo Musician Name Role Phone Calvin Colbert MD Primary Care Provider [phone] Surgical History Surgery Date Site/Laterality Comments APPENDECTOMY 02/1987 PROCEDURE: HISTORICAL APPENDECTOMY HERNIA REPAIR PROCEDURE: HISTORICAL HERNIA REPAIR/ING; COMMENT: with mesh [facility] OTHER SURGICAL HISTORY 04/2017 PROCEDURE: MI EXCISION MALIGNANT LESION F/E/E/N/L 0.6-1.0 CM; COMMENT: basal OTHER SURGICAL HISTORY 03/05/2002 PROCEDURE: MI COLECTOMY PARTIAL W/ANASTOMOSIS; COMMENT: sigmoid colon d/t [...] Peptic Ulcer Disease History of substance abuse ( CMS/HCC V24, CMS/HCC V28) 02/12/2018 DX:History of substance abus e ([facility]); COMMENT: Excessive alcohol intake Carpal tunnel syndrome 02/12/2018 DX:Carpal tunnel syndrome; COMMENT: Right wrist Pterygium 02/12/2018 DX:Pterygium Hernia cerebri (CMS/HCC V24, CMS/[facility] V28) DX:Hernia cerebri (HCC) Family History Medical History Relation [...] - 2023-2 5 season) 2024 Influenza Vaccine (Season Ended) 2025 05/12/2018, 05/30/2017 DTaP,Tdap,and Td Vaccines (2 - Td or Tdap) 05/30/2027 05/30/2017 RSV Immunization Adult Patients (1 - 1-dose 75+ series) 2033 HIB [...] age to complete this topic Meningococcal B Vaccine Aged Out No l onger eligible based on patient's age to complete this topic RSV Immunization Patients Under 20 months Aged Out No longer eligible b ased on patient's age to complete this topic Varicella Vaccines Aged Out No longer eligible based on patient's age to complete this topic Care Teams Solo Musician Relationship Specialty Start Date End Date Calvin Colbert MD [address] [place] [id number] PCP - General Internal Medicine 01/07/18
--- OUTSIDE RECORDS SUMMARY | 2025-02-19 07:59 | XMS_ITS | Patient Health Record ---
Author Organization [facility] Address [address] [place] [address] Care Team Providers Care Bed Setter Name Role Phone Bryan Hightower Primary Care Provider Thiago Rankin Unavailable [phone] Allergies Allergen (clinical drug ingredient) Drug/Non Drug Allergy documented on EMR Reaction Allergy Type Onset Date Status Information temporarily unavailable Ceftin Unknown Drug Allergy Active Information temporarily unavailable Levaquin Unknown Drug Allergy Active Reason For Referral No Information Medications Medication SIG (Take, Route, Fr equency, Duration) Notes Start Date End Date Status Probiotic as directed Orally 08/20/2024 08/20/2024 Active Simvastatin 40mg 08/20/2024 08/20/2024 A ctive MoviPrep 100 GM as directed Orally o nce for 1 dose 06/19/2012 Active Plan Of Treatment Future Test Test Name Order Date COLONOSCOPY 06/19/2012 Insurance Providers Payer Name Payer Address Payer Phone Subscriber Number Group Number Insured Name Patient Relationship to Insured Coverage Start Date Coverage End Date [facility] [address] [place] [phone] [id number] JOSE ESPINAL Self - patient is the insured Medical (General) History Medical History History ICD Code Denies [place],DM,CVA,Lung disease,renal dise ase Diverticulitis in 2003 approx. Elevated cholesterol PUD in the 1970s Surgical History Surgery Date(Month/Year) Diverticulitis-resection wit h Dr. Ann in approximately 2003--he describes an incisional hernia that was repaired at [facility]
[2025-02-19 10:06] LABS: MANUAL DIFF FLAG NO
[2025-02-19 10:19] LABS: Hematocrit 43.1 % (42.0-52.0); Hemoglobin 14.4 g/dl (14.0-18.0); Imm Gran Abs Auto 0.03 X10*3/uL (0.00-0.03); Imm Gran Pct Auto 0.6 % (0.0-0.4); Lymphocytes Absolute Auto 0.9 X10*3/uL (1.2-4.9); Mean Corpuscular HGB Conc 33.4 g/dl (31.0-36.0); Mean Corpuscular Hemoglobin 29.9 pg (27.0-33.0); Mean Corpuscular Volume 89.6 fL (80.0-98.0); NRBC Abs Auto 0.000 X10*3/uL (0.0-0.012); NRBC Pct Auto 0.0 /100WBC (0.0-0.2); Platelet Count 337 X10*3/uL (160-400); Red Blood Count 4.81 X10*6/uL (4.60-5.80); White Blood Count 5.2 X10*3/uL (4.8-10.8)
[2025-02-19 10:40] LABS: Alanine Aminotransferase 29 U/L (0-40); Albumin Level 4.4 g/dL (3.5-5.0); Alkaline Phosphatase 68 U/L (39-117); Anion Gap 10 (12-20); Aspartate Amino Transferase 30 U/L (5-37); Blood Urea Nitrogen 17 mg/dL (9-16); Calcium 9.0 mg/dL (8.4-10.2); Carbon Dioxide 26 mmol/L (22-29); Chloride 107 mmol/L (96-108); Cholesterol 168 mg/dL (<200); Estimated Glomerular Filt Rate > 60; HDL Cholesterol 40 mg/dL (>40); Potassium 4.7 mmol/L (3.3-5.1); Sodium 138 mmol/L (135-145); Total Protein 6.9 g/dL (6.5-8.0); Triglycerides 196 mg/dL (<150)
[2025-02-19 11:08] LABS: Free T4 (Free Thyroxine) 0.81 ng/dL (0.71-1.85); Thyroid Stimulating Hormone 4.68 uIU/mL (0.32-4.0)
[2025-02-19 11:15] LABS: Prostate Specific Antigen 0.53 ng/mL (<0.05-4.0)
== END 2025-02-19 07:57 | disposition home or self-care (01) ==
LOC: HO.HMGCLDS 07:56
PROVIDERS: PCP Internal Medicine Medical Oncology; Visit Provider Internal Medicine Medical Oncology
DX: E78.2 Mixed hyperlipidemia (principal); N40.1 Benign prostatic hyperplasia with lower urinary tract symptoms; E66.9 Obesity, unspecified; I10 Essential (primary) hypertension; R59.9 Enlarged lymph nodes, unspecified; R53.83 Other fatigue
CPT/HCPCS: 36415; 80053; 80061; 84153; 84439; 84443; 85025